=== PATIENT | male | born 1955 | race Caucasian/White ===

== ENCOUNTER 2016-05-31 16:00 | Inpatient (IN) | payer MEDICARE ==
[~2016-05-31] VITALS: Ht 167.6 cm; Wt 65.1 kg
[~2016-05-31 16:00] MED LIST: ASPI-999 PO; BUDE10.2 IH; CLOP75TA69 PO; DIAZ10TA3 PO; DULO60CA6 PO; GABA300T PO; HYDR-3720 PO; LISI-556 PO; LORA10CA PO; LOSA50TA36 PO; MEPE50TA PO; NABU750T PO; NITR0.4T SL; PROP40TA5 PO; PRV20T PO; RANI300T4 PO; RT-ALBUINH IH
--- OUTSIDE RECORDS SUMMARY | 2016-05-31 16:05 | XMS REPORT | Continuity of Care Document ---
Author Author [facility] Organization [facility] Address Unknown Phone Unavailable Allergies Active Description Code Type Severity Reaction Onset Reported/Identified Relationship to Patient Clinical Status Yes NKANo Known Allergies NKA Miscellaneous Allergy Unknown N/ A 07/25/2006 Medications Problems Date Dx Coded Attending Type Code Diagnosis Diagnosed By 09/24/2009 Ot 271.3 09/24/2009 Ot 272.4 09/24/2009 Ot 276.8 09/24/2009 Ot 305.1 09/24/2009 Ot 311 09/24/2009 Ot 338.4 09/24/2009 Ot 401.9 09/24/2009 Ot 410.71 09/24/2009 Ot 414.01 09/24/2009 Ot 427.89 09/24/2009 Ot 530.81 09/24/2009 Ot 794.2 10/10/2014 FRANCINE BRYSON, PRECIOUS Blake Ot 782.2 02/07/2015 Ot 519.19 02/07/2015 Ot 272.4 02/07/2015 Ot 401.9 02/07/2015 Ot 411.1 02/07/2015 Ot 414.01 02/07/2015 Ot 601.9 02/07/2015 Ot 791.9 02/07/2015 Ot V58.69 02/07/2015 Ot 401.9 02/07/2015 Ot 414.00 02/07/2015 Ot 496 02/07/2015 Ot 786.50 02/07/2015 Ot 788.43 02/07/2015 Ot 788.64 02/07/2015 Ot V58.69 02/07/2015 Ot V58.83 02/07/2015 FRANCINE BRYSON, PRECIOUS Blake Ot 338.29 02/07/2015 FRANCINE BRYSON, PRECIOUS Blake Ot 348.89 02/07/2015 FRANCINE BRYSON, PRECIOUS Blake Ot 368.9 02/07/2015 RFANCINE BRYSON, PRECIOUS Blake Ot 401.9 02/07/2015 FRANCINE BRYSON, PRECIOUS Blake Ot 414.01 02/07/2015 FRANCINE BRYSON, PRECIOUS Blake Ot 496 02/07/2015 PRECIOUS ESCAMILLA MD Ot 600.00 02/07/2015 PRECIOUS ESCAMILLA MD Ot 716.90 02/07/2015 PRECIOUS ESCAMILLA MD Ot V58.69 02/07/2015 PRECIOUS ESCAMILLA MD Ot 782.2 02/08/2015 PRECIOUS ESCAMILLA MD Ot F17.210 02/08/2015 PRECIOUS ESCAMILLA MD Ot I10 02/08/2015 PRECIOUS ESCAMILLA MD Ot I21.4 Procedures Results Encounters ACCT No. Visit Date/Time Discharge Status Pt. Type Provider Facility Loc./Unit Complaint [id number] 02/07/2015 22:40:00 2014 13:48:00 DIS Inpatient PRECIOUS ESCAMILLA MD [facility] [id number] 09/16/2014 14:33:00 2014 23:59:59 CLS Outpatient PRECIOUS ESCAMILLA MD [facility] CARD [id number] 09/30/2013 10:35:00 2013 23:59:59 CLS Outpatient PRECIOUS ESCAMILLA MD [facility] RAD [id number] 05/31/2016 16:02:00 ACT Emergency VON BRYSON , PEREZ Lehman [facility] ER CP [id number] 11/30/2011 17:09:00 Document Registration [id number] 05/19/2010 11:42:00 Document Registration [id number] 11/24/2009 10:45:00 Document Registration [id number] 09/23/2009 11:25:00 Document Registration
[2016-05-31] MEDS ORDERED: ASPIRIN 81 MG CHEW (CHILDREN'S ASA) PO ONE (16:15)
[2016-05-31 16:28] LABS: BASOPHILS % (AUTO) 0 % (0-10); EOSINOPHILS # (AUTO) 0.2 10^3/uL (0.0-0.3); EOSINOPHILS % (AUTO) 2 % (0-10); LYMPHOCYTES % (AUTO) 22 % (12-44); MEAN CORPUSCULAR HEMOGLOBIN 32 PG (25-34); MEAN CORPUSCULAR HGB CONC 36 G/DL (32-36); MEAN CORPUSCULAR VOLUME 89 FL (80-99); MEAN PLATELET VOLUME 11.1 FL (7.4-10.4); MONOCYTES # (AUTO) 0.5 X 10^3 (0.0-1.0); MONOCYTES % (AUTO) 6 % (0-12); NEUTROPHILS # (AUTO) 6.3 X 10^3 (1.8-7.8); NEUTROPHILS % (AUTO) 70 % (42-75); PLATELET COUNT 260 10^3/uL (130-400); RED BLOOD COUNT 4.79 10^6/uL (4.35-5.85); RED CELL DISTRIBUTION WIDTH 15.2 % (10.0-14.5)
[2016-05-31] MEDS ORDERED: NITROGLYCERIN 2% OINT 1 GM UNIT DOSE PACKET TOP ONE (16:45)
--- NOTE | 2016-05-31 16:53 | Diagnostic Imaging Report ---
EXAMINATION: Portable upright radiograph of the chest. INDICATION: Chest pain. FINDINGS: The lungs are clear. There is interstitial thickening suggestive of vascular congestion and mild interstitial edema. There is no alveolar edema or significant consolidation. The heart size is moderately enlarged. No effusion or pneumothorax. The mediastinum and reyna appear unremarkable. IMPRESSION: Cardiomegaly with interstitial pulmonary edema. Dictated by: Dictated on workstation # [id number]
[2016-05-31 17:12] LABS: INR 1.1 (0.8-1.4); PROTHROMBIN TIME PATIENT 13.8 SEC (12.2-14.7)
[2016-05-31 17:17] LABS: ALANINE AMINOTRANSFERASE 8 U/L (0-55); ALBUMIN 3.8 G/DL (3.2-4.5); ANION GAP 11 MMOL/L (5-14); ASPARTATE AMINO TRANSFERASE 14 U/L (5-34); BILIRUBIN,TOTAL 0.7 MG/DL (0.1-1.0); BLOOD UREA NITROGEN 9 MG/DL (7-18); BUN/CREATININE RATIO 11; CALCIUM 8.8 MG/DL (8.5-10.1); CARBON DIOXIDE 22 MMOL/L (21-32); CHLORIDE 109 MMOL/L (98-107); CREATININE SERUM 0.85 MG/DL (0.60-1.30); GFR ESTIMATED > 60; GLUCOSE 111 MG/DL (70-105); MAGNESIUM 2.1 MG/DL (1.8-2.4); POTASSIUM 3.8 MMOL/L (3.6-5.0); SODIUM 142 MMOL/L (135-145)
[2016-05-31 17:23] LABS: MYOGLOBIN SERUM 52.6 NG/ML (10.0-92.0)
[2016-05-31] MEDS ORDERED: NS 100 ML (IVPB) BAG IV ONE (17:30)
[2016-05-31] MEDS ORDERED: IOHEXOL 350 MG/ML 150 ML (OMNIPAQUE 350) VIAL IV ONE (17:30)
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
[2016-05-31] MEDS ORDERED: NITROGLYCERIN DRIP 25 MG/D5W 250 ML IV SCH (18:15)
--- NOTE | 2016-05-31 18:16 | Diagnostic Imaging Report ---
INDICATION: Chest pain, dyspnea, abdominal tenderness. TECHNIQUE: Contiguous axial images were obtained through the chest, abdomen, and pelvis during the intravenous administration of contrast. MIP reconstructions were created and evaluated. COMPARISON: CT of the chest 09/23/2009. DISCUSSION: Chest: No pulmonary embolus is identified. Normal heart size. The thoracic aorta is normal in caliber and configuration. The pulmonary arteries are normal in caliber. Mild emphysema is noted. Subsegmental atelectasis is noted dependently. No focal consolidation. No pleural or pericardial fluid. No mediastinal, hilar, or axillary adenopathy. No acute osseous abnormality identified. Abdomen/pelvis: Cholelithiasis is present. No secondary inflammatory changes are identified otherwise. Fatty infiltration of the liver is noted. The pancreas, stomach, spleen, adrenal glands, kidneys, urinary bladder, and prostate are unremarkable. The large and small bowel loops, including the appendix, appear normal. There is no ascites or pathologically enlarged lymph nodes identified. Degenerative changes are present within the lumbar spine. No acute osseous abnormality identified. The abdominal aorta is normal in caliber. IMPRESSION: 1. No pulmonary embolus or other acute abnormality identified within the chest. 2. Mild emphysema. 3. Fatty infiltration of the liver. 4. Cholelithiasis. Dictated by: Dictated on workstation # [id number]
[2016-05-31 18:30] LABS: ABG BASE EXCESS -1.3 MMOL/L (-2.5-2.5); ABG HCO3 23 MMOL/L (23-27); ABG OXYGEN SATURATION 93 % (94-100); ABG PCO2 40 MMHG (35-45); ABG PH 7.38 (7.37-7.43); ABG PO2 56 MMHG (79-93); ABG TCO2 24.7 MMOL/L (21.0-31.0); ALLENS TEST YES-POS; PATIENT TEMP 96.1
[2016-05-31] MEDS ORDERED: fentaNYL INJECTION 100 MCG/2 ML AMP IVP ONE (18:30)
[2016-05-31] MEDS ORDERED: ENOXAPARIN 80 MG/0.8 ML (LOVENOX) SYR SC ONE (19:30)
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
[2016-05-31 20:20] VITALS: BP 116/76
[2016-05-31] MEDS ORDERED: morphine INJ 4 MG/ML 1 ML (VIAL/SYRINGE) ONE (21:17)
[2016-05-31] MEDS: morphine INJ 4 MG/ML 1 ML (VIAL/SYRINGE) IVP PRN (21:28)
[2016-05-31 21:30] VITALS: BP 128/74
[2016-05-31] MEDS ORDERED: NITROGLYCERIN SUBLINGUAL 0.4 MG TAB (NITROSTAT) SL PRN (23:00)
[2016-05-31] MEDS ORDERED: morphine INJ 4 MG/ML 1 ML (VIAL/SYRINGE) IV PRN (23:00)
[2016-06-01] VITALS (24 sets, daily range): BP systolic 82–192; BP diastolic 49–108
[2016-06-01] MEDS: NS IV 1000 ML 1,000 ML IV SCH ×3 (01:14→17:00)
[2016-06-01] MEDS: morphine INJ 4 MG/ML 1 ML (VIAL/SYRINGE) IVP PRN ×5 (01:18→13:46)
[2016-06-01 04:31] LABS: BASOPHILS % (AUTO) 0 % (0-10); EOSINOPHILS # (AUTO) 0.1 10^3/uL (0.0-0.3); EOSINOPHILS % (AUTO) 1 % (0-10); LYMPHOCYTES # (AUTO) 2.3 X 10^3 (1.0-4.0); LYMPHOCYTES % (AUTO) 25 % (12-44); MEAN CORPUSCULAR HEMOGLOBIN 31 PG (25-34); MEAN CORPUSCULAR HGB CONC 35 G/DL (32-36); MEAN CORPUSCULAR VOLUME 89 FL (80-99); MEAN PLATELET VOLUME 9.9 FL (7.4-10.4); MONOCYTES # (AUTO) 0.5 X 10^3 (0.0-1.0); MONOCYTES % (AUTO) 5 % (0-12); NEUTROPHILS # (AUTO) 6.5 X 10^3 (1.8-7.8); NEUTROPHILS % (AUTO) 69 % (42-75); PLATELET COUNT 204 10^3/uL (130-400); RED BLOOD COUNT 4.38 10^6/uL (4.35-5.85); RED CELL DISTRIBUTION WIDTH 13.4 % (10.0-14.5); WHITE BLOOD COUNT 9.4 10^3/uL (4.3-11.0)
[2016-06-01 04:55] LABS: ALANINE AMINOTRANSFERASE 6 U/L (0-55); ALBUMIN 3.1 G/DL (3.2-4.5); ANION GAP 11 MMOL/L (5-14); ASPARTATE AMINO TRANSFERASE 15 U/L (5-34); BILIRUBIN,TOTAL 0.5 MG/DL (0.1-1.0); BLOOD UREA NITROGEN 8 MG/DL (7-18); BUN/CREATININE RATIO 11; CALCIUM 8.1 MG/DL (8.5-10.1); CARBON DIOXIDE 23 MMOL/L (21-32); CHLORIDE 108 MMOL/L (98-107); CREATININE SERUM 0.75 MG/DL (0.60-1.30); GFR ESTIMATED > 60; GLUCOSE 91 MG/DL (70-105); MAGNESIUM 1.7 MG/DL (1.8-2.4); PHOSPHORUS 3.5 MG/DL (2.3-4.7); POTASSIUM 3.3 MMOL/L (3.6-5.0); SODIUM 142 MMOL/L (135-145); TOTAL PROTEIN 5.6 G/DL (6.4-8.2)
[2016-06-01 05:29] LABS: CHOLESTEROL 142 MG/DL (< 200); DIRECT LDL 94 MG/DL (1-129); TRIGLYCERIDES 162 MG/DL (<150); VLDL CHOLESTEROL 32 MG/DL (5-40)
[2016-06-01] MEDS: KCL 20 MEQ TAB (K-DUR) PO SCH (06:00)
[2016-06-01] MEDS: MAGNESIUM 1 GM/100 ML IVPB 100 ML IV SCH ×3 (06:00→12:08)
[2016-06-01] MEDS: POTASSIUM CL 10MEQ/50ML IVPB 50 ML IV SCH ×5 (06:00→10:54)
[2016-06-01] MEDS: PANTOPRAZOLE 40 MG (PROTONIX) TAB PO SCH (06:28)
--- NOTE | 2016-06-01 08:23 | Diagnostic Imaging Report ---
INDICATION: Dyspnea Frontal chest obtained at 537 hours a.m., and compared with yesterday. There is cardiomegaly. There is mild central vascular prominence. There is no acute consolidation or pneumothorax or pleural fluid. IMPRESSION: Cardiomegaly. Mild central vascular prominence. No acute consolidation or pleural fluid. Dictated by: Dictated on workstation # [id number]
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
[2016-06-01] MEDS ORDERED: CATHETER FLUSH 10 ML SYR IV PRN (08:45)
[2016-06-01] MEDS: CLOPIDOGREL 75 MG (PLAVIX) TABLET PO SCH (08:54)
[2016-06-01] MEDS: ENOXAPARIN 80 MG/0.8 ML (LOVENOX) SYR SC SCH ×2 (08:54→20:50)
[2016-06-01] MEDS ORDERED: ASPIRIN E.C. 325 MG (ECOTRIN) TABLET PO SCH (09:00)
[2016-06-01] MEDS: NITROGLYCERIN DRIP 25 MG/250 ML D5W (PRE-MIX) IV SCH ×2 (10:49→23:00)
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
[2016-06-01] MEDS ORDERED: PROP40TA5 PO (11:58)
[2016-06-01] MEDS ORDERED: MORP15TA PO (11:58)
[2016-06-01] MEDS ORDERED: DULO60CA58 PO (11:58)
[2016-06-01] MEDS ORDERED: NABU750T PO (11:58)
[2016-06-01] MEDS ORDERED: CLOP75TA28 PO (11:58)
[2016-06-01] MEDS ORDERED: DIAZ10TA3 PO (11:58)
[2016-06-01] MEDS ORDERED: GABA-488 PO (11:58)
[2016-06-01] MEDS ORDERED: PRAV20TA3 PO (11:58)
[2016-06-01] MEDS ORDERED: HYDR-3820 PO (11:58)
[2016-06-01] MEDS ORDERED: RANI300T4 PO (11:58)
--- NOTE | 2016-06-01 12:54 | Discharge Inst-Cardiology ---
Discharge Inst-Cardiac Discharge Medications New, Converted or Re-Newed RX: Other (no new Rx.) Patient Instructions Patient Instructions: Continue current medication regimen for his chest pain, mild coronary artery disease, and systolic CHF Return to [facility] For: new concerns. Activity & Diet Discharge Diet: Cardiac Diet Drink 6-8 Glasses/Fluids/Day: Yes Activity as Tolerated: Yes Orders-Post D/C & Referrals Follow up with Dr. Hearn in 1-2 weeks- JULIO CESAR SANDOVAL MD Jun 01, 2016 12:54
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
[2016-06-01] MEDS ORDERED: ONDANSETRON 4 MG/2 ML (SDV) Z0FRAN ONE (14:59)
[2016-06-01] MEDS ORDERED: ONDANSETRON 4 MG/2 ML (SDV) Z0FRAN IVP ONE (16:00)
[2016-06-01] MEDS ORDERED: MIDAZOLAM 5 MG/5 ML (VERSED) VIAL ONE (16:00)
[2016-06-01] MEDS ORDERED: LIDOCAINE 1% INJ 20 ML (XYLOCAINE) VIAL ONE (16:00)
[2016-06-01] MEDS ORDERED: fentaNYL INJECTION 100 MCG/2 ML AMP ONE (16:00)
[2016-06-01] MEDS ORDERED: NS IV 1000 ML 1,000 ML ONE (16:00)
[2016-06-01] MEDS ORDERED: HEParin (CATH LAB) 2,000 ML IV ONE (16:01)
[2016-06-01] MEDS ORDERED: NITROGLYCERIN DRIP 25 MG/D5W 0 ML IV ONE (16:05)
[2016-06-01] MEDS ORDERED: HEParin 1000 UNIT/ML (10ML VIAL) FOR BOLUS ONE (16:05)
--- NOTE | 2016-06-01 16:09 | Cardiac Procedure Note-CS/ASA ---
Pre-Procedure Note Pre-Op Procedure Note H&P Reviewed The H&P was reviewed, patient examined and no changes noted. Date H&P Reviewed: Jun 01, 2016 Time H&P Reviewed: 16:08 Conscious Sedation Pre-Proced Time Reviewed: 16:08 ASA Class: 3 Airway Mallampati Classification: ([place] appropriate class) I. II. III, IV Lungs Heart ASA score ASA 1: a normal healthy patient ASA 2: a patient with a mild systemic disease (mid diabetes, controlled hypertension, obesity x ASA 3: a patient with a severe systemic disease that limits activity (angina , COPD, prior Myocardial infarction) ASA 4: a patient with an incapacitating disease that is a constant threat to life (CHF, renal failure) ASA 5: a moribund patient not expected to survive 24 hrs. (ruptured aneurysm) ASA 6: a declared brain patient whose organs are being harvested. For emergent operations, add the letter E after the classification Grade 3 Sedation Plan: Analgesia, Amnesia, Plan communicated to team members, Discussed options with patient/fam, Discussed risks with patient/fam Note The patient is an appropriate candidate to undergo the planned procedure, sedation, and anesthesia. The patient immediately re-assessed prior to indication. MAAME TAPIA MD Jun 01, 2016 16:08
[2016-06-01] MEDS ORDERED: meTOprolol 5 MG/5 ML (LOPRESSOR) VIAL ONE (16:33)
[2016-06-01] MEDS ORDERED: ENALAPRILAT 2.5 MG/2 ML (VASOTEC) VIAL IV ONE (16:33)
[2016-06-01] MEDS ORDERED: ADENOSINE 3 MG/1 ML (ADENOSCAN) 30ML VIAL IV ONE (16:39)
[2016-06-01] MEDS ORDERED: RT-ALBUTEROL/IPRATROPIUM 3 ML (DUONEB) VIAL ONE (16:56)
[2016-06-01] MEDS ORDERED: PATIENT MAY USE OWN MEDS, ALL PO SCH (17:00)
[2016-06-01] MEDS ORDERED: lisINopril 5 MG (PRINIVIL) TABLET PO NR (17:00)
[2016-06-01] MEDS: RT-ALBUTEROL/IPRATROPIUM 3 ML (DUONEB) VIAL INH SCH (19:24)
[2016-06-01] MEDS ORDERED: FUROSEMIDE 40 MG/4 ML INJ (LASIX) IVP NR (21:00)
[2016-06-02] VITALS (9 sets, daily range): BP systolic 106–153; BP diastolic 60–88
[2016-06-02] MEDS: NS IV 1000 ML 1,000 ML IV SCH (02:50)
[2016-06-02 04:25] LABS: BASOPHILS % (AUTO) 0 % (0-10); EOSINOPHILS # (AUTO) 0.1 10^3/uL (0.0-0.3); EOSINOPHILS % (AUTO) 2 % (0-10); LYMPHOCYTES # (AUTO) 2.3 X 10^3 (1.0-4.0); LYMPHOCYTES % (AUTO) 28 % (12-44); MEAN CORPUSCULAR HEMOGLOBIN 31 PG (25-34); MEAN CORPUSCULAR HGB CONC 35 G/DL (32-36); MEAN CORPUSCULAR VOLUME 90 FL (80-99); MONOCYTES # (AUTO) 0.5 X 10^3 (0.0-1.0); MONOCYTES % (AUTO) 6 % (0-12); NEUTROPHILS # (AUTO) 5.3 X 10^3 (1.8-7.8); NEUTROPHILS % (AUTO) 65 % (42-75); PLATELET COUNT 178 10^3/uL (130-400); RED CELL DISTRIBUTION WIDTH 13.7 % (10.0-14.5); WHITE BLOOD COUNT 8.2 10^3/uL (4.3-11.0)
[2016-06-02 04:47] LABS: ANION GAP 10 MMOL/L (5-14); BLOOD UREA NITROGEN 5 MG/DL (7-18); BUN/CREATININE RATIO 6; CARBON DIOXIDE 24 MMOL/L (21-32); CHLORIDE 108 MMOL/L (98-107); CREATININE SERUM 0.79 MG/DL (0.60-1.30); GFR ESTIMATED > 60; GLUCOSE 97 MG/DL (70-105); MAGNESIUM 2.1 MG/DL (1.8-2.4); PHOSPHORUS 2.9 MG/DL (2.3-4.7); POTASSIUM 3.4 MMOL/L (3.6-5.0); SODIUM 142 MMOL/L (135-145)
[2016-06-02 05:01] LABS: TROPONIN I 1.69 NG/ML (<0.30)
[2016-06-02] MEDS: MAGNESIUM 1 GM/100 ML IVPB 100 ML IV SCH (05:01)
[2016-06-02] MEDS: POTASSIUM CL 10MEQ/50ML IVPB 50 ML IV SCH (05:01)
[2016-06-02] MEDS: KCL 20 MEQ TAB (K-DUR) PO SCH (05:16)
[2016-06-02] MEDS ORDERED: KCL 20 MEQ TAB (K-DUR) PO ONE (06:00)
[2016-06-02] MEDS: PANTOPRAZOLE 40 MG (PROTONIX) TAB PO SCH (06:00)
[2016-06-02] MEDS: RT-ALBUTEROL/IPRATROPIUM 3 ML (DUONEB) VIAL INH SCH (07:21)
--- NOTE | 2016-06-02 07:37 | Diagnostic Imaging Report ---
Clinical indication: Patient with dyspnea. Exam: Portable chest x-ray upright view. Comparisons: Chest x-ray dated 05/30/2016. Findings: There is interval development of small patchy airspace opacities seen within the bilateral perihilar regions which may represent atelectasis versus infiltrate. Otherwise, lungs are clear. There is no pleural effusion or pneumothorax. Pulmonary vasculature is mildly congested centrally. Cardiac silhouettes within normal limits. The remainder of this exam shows no significant interval change compared to the prior study of comparison. Impression: 1.: Interval development of mild bilateral perihilar atelectasis versus infiltrate. 2: Stable mild pulmonary vascular congestion centrally. 3: The remainder of this exam shows no significant interval change compared to the prior study of comparison. Dictated by: Dictated on workstation # [id number]
[2016-06-02] MEDS ORDERED: DIAZEPAM 5 MG (VALIUM) TABLET PO PRN (07:45)
--- NOTE | 2016-06-02 07:48 | Cardiology Progress Note ---
Subjective Subjective/Events-last exam patient is laying down, no complaint, no chest pain today Review of Systems General: No Chills, No Night Sweats, No Fatigue, No Malaise, No Appetite, No Other HEENT: No Head Aches, No Visual Changes, No Eye Pain, No Ear Pain, No Dysphasia , No Sinus Congestion, No Post Nasal Drip, No Sore Throat, No Other Pulmonary: No Dyspnea, No Cough, No Pleuritic Chest Pain, No Other Cardiovascular: No: Chest Pain, Edema, Lt Headedness, Orthopnea, Other, Palpitations, Paroxysmal Noc. Dyspnea Objective-Cardiology Exam Last Set of Vital Signs Vital Signs 06/01/16 06/02/16 06/02/16 15:45 06:00 07:22 Pulse 61 Resp 16 B/P 153/86 Pulse Ox 98 O2 Delivery Nasal Cannula O2 Flow Rate 2.00 Capillary Refill : Less Than 3 Seconds I&O Intake and Output 06/02/16 00:00 Intake Total 1540 ml Output Total 1850 ml Balance -310 ml Intake Oral 1290 ml IV Total 250 ml Output Urine Total 1850 ml General: Alert, Oriented X3, Cooperative HEENT: Atraumatic Neck: Supple, No JVD, No Thyromegaly Lungs: Clear to Auscultation Heart: Regular Rate Abdomen: Normal Bowel Sounds, Soft Extremities: No Clubbing, No Cyanosis, No Edema, Normal Pulses, No Tenderness/ Swelling Skin: No Rashes, No Breakdown, No Significant Lesion Neuro: Normal Gait, Normal Speech, Strength at 5/5 X4 Ext, Normal Tone, Sensation Intact Psych/Mental Status: Mental Status NL, Mood NL Results Lab Laboratory Tests 06/02/16 04:10 A/P-Cardiology Admission Diagnosis Chest pain Non-ST elevation myocardial infarctions Coronary artery disease Hypertension Tobaccoism Assessment/Plan Chest pain, no Myocardial infarction, cardiac cath showed mild CAD, probably elevated trop is secondary to CHF Congestive heart failure, acute left ventricular systolic dysfunction, nonischemic in nature, unknown etiology, started beta blockers and Suhas inhibitors Coronary artery disease mild per cardiac catheterization, 50% stenosis in mid RCA Hypertension, evaluate tolerance to medication. Hyperlipidemia. restart home meds and monitor lipids Joint pain, hip pain and back pain. Chronic. 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 Positive urine drug screen for marijuana. Tobaccoism, educated on smoking cessation. I will evaluate for tick titers, okay for discharge from cardiology standpoint Clinical Quality Measures AMI/AHF: ASA po Prior to arrival: Yes (PER EMS) DVT/VTE Risk/Contraindication: Risk Factor Score Per Nursin RFS Level Per Nursing on Admit: 2=Moderate MAAME TAPIA MD Jun 02, 2016 07:48
[2016-06-02] MEDS ORDERED: ASPI-983 PO (08:21)
[2016-06-02] MEDS ORDERED: METO-270 PO (08:21)
[2016-06-02] MEDS: CLOPIDOGREL 75 MG (PLAVIX) TABLET PO SCH (08:28)
[2016-06-02] MEDS: ENOXAPARIN 80 MG/0.8 ML (LOVENOX) SYR SC SCH (08:30)
[2016-06-02] MEDS ORDERED: ASPIRIN E.C. 81 MG (ECOTRIN) TAB PO SCH ×2 (09:00)
[2016-06-02] MEDS ORDERED: lisINopril 5 MG (PRINIVIL) TABLET PO SCH (09:00)
--- NOTE | 2016-06-02 11:29 | CARDIAC CATHETERIZATION ---
PROCEDURE PHYSICIAN: MAAME TAPIA DATE OF PROCEDURE: 06/01/2016 REFERRING PHYSICIAN: Dr. Castillo BRIEF HISTORY: Mr. Brown is a 60-year-old gentleman admitted with acute chest pain. He had elevated troponin. No acute EKG changes. We offered the patient cardiac catheterization on admission and he refused, he asked to wait until the next day. This morning I offered him a cardiac catheterization and he elected not to have it done. I offered him medical therapy and patient agreed to stay then he requested to be discharged. Upon processing his discharge he started having chest pain again and he agreed having cardiac catheterization done. PROCEDURE NOTE: After explaining the procedure to the patient, all pros and cons were explained. All questions were answered. The patient signed a consent, then he was placed on the cardiac catheterization laboratory. The right groin was prepped in a sterile fashion. Local anesthesia applied to right groin. 6-[place] sheath was placed in the right femoral artery. Combination of right and left Joana catheters were used to access the right and left coronary system. Multiple views were obtained. Pigtail catheter was advanced to the left ventricular cavity. Left ventriculogram was done. Pullback LV to aorta was done. The aortic arch angiogram was done. The patient had a borderline lesion in the right coronary artery. I decided to do FFR. He was given 5000 units of heparin. FR guide was advanced to the right coronary artery Radi wire was initially equalized and then it was advanced and parked in the distal right coronary artery. Baseline FFR was 0.97. Adenosine drip was given. After 2 minutes he was having shortness of breath; lowest FFR was 0.93. The lesion deemed nonobstructive. Angiogram was done after removal of the wire, which did not show any significant residual complication. At the end of the procedure, sheath was removed. Mynx device deployed. FINDINGS: HEMODYNAMICS: LV pressure 141/20, end-diastolic pressure of 20. Aortic pressure 154/76, mean of 105. ANATOMY: 1. Left main coronary artery is small with nonobstructive disease. 2. Left anterior descending artery is tapered down into a smaller artery with no obstructive disease. Mild disease distally. 3. Left circumflex artery is a small artery with no obstructive disease. 4. Right coronary artery is moderate in size. Has 60% stenosis at its midportion. FFR across the lesion was 0.97 at baseline and 0.93 after adenosine injection, nonobstructive lesions. 5. Left ventriculogram was done in the right anterior oblique position. The left ventricle is dilated with diffuse left ventricular hypokinesia. Estimated ejection fraction 35%. 6. Aortic arch angiogram: Aortic arch evaluation showed hypertensive changes in the aortic arch. No dissection was noted. Origin of the subclavian artery, innominate artery and left carotid artery appeared normal. CONCLUSION: 1. 50 to 60% stenosis in the mid right coronary artery, nonobstructive disease confirmed by FFR. 2. Small left coronary system with nonobstructive disease. 3. Dilated left ventricle with diffuse left ventricular hypokinesia. Estimated ejection fraction 35% with elevated left ventricular end diastolic pressure. 4. Hypertensive changes in the aortic arch, no dissection was noted. DISCUSSION AND RECOMMENDATION: Mr. Brown has severe cardiomyopathy, nonischemic in nature probably secondary to hypoxemia. We will give him Lasix. Start him on beta blockers and EMY inhibitors and monitor. Start him on MAT protocol. Monitor his ejection fraction. Continue medical therapy. Consider discontinuation of Plavix at this point, just keep him on aspirin. Job ID: [id number] Dictated Date: 06/01/2016 16:58:07 Teacher Tutor Date: 06/02/2016 11:13:56 / trish
--- NOTE | 2016-06-03 13:20 | Physician Query ---
PQ-Further Specificity Admission/Discharge Admission Date: May 31, 2016 at 19:25 Discharge Date: Jun 02, 2016 at 10:50 The medical record reflects the following clinical scenario: History/Risk Factors: Chest Pain/NSTEMI 2009 Clinical Findings: 50-60 % stenosis in the mid right coronary artery, nonobstructive. Severe cardiomyopathy, nonischemic in nature probably secondary to hypoxemia. Acute systolic congestive heart failure with estimated ejection fraction of 35%. Treatment: Left heart cath. Lasix, beta blockers and EMY inhibitors and aspirin. Question: Can you clarify the etiology of the patient's admitting chest pain ( after study) per the clinical indicators above? Please document below. 1. Coronary artery disease. 2. Acute systolic congestive heart failure. 3. Non-ischemic cardiomyopathy. 4. Other, with explanation of the clinical findings. 5. Clinically undetermined, no explanation for the clinical findings. PHYSICIAN RESPONSE Can you specify per above: 1 Explanation/Clinical Findings patient has severe coronary artery disease and had 2 stents to RCA and planning for 2 other stents to LAD has Unstable angina Please remember a lack of response to the above will prompt a phone page by [facility]/ coding staff. In responding to this query, please exercise your independent professional judgment. The purpose of this communication is to more accurately reflect the complexity of your patients condition. The fact that a question is asked does not imply that any particular answer is desired or expected. Thank you for your timely response to this clarification. Requestors name: Carmen Leung [facility] Phone # ext [phone] or [phone] THIS PHYSICIAN QUERY FORM IS A PERMANENT PART OF THE MEDICAL RECORD CARMEN LEUNG Jun 03, 2016 13:20 MAAME TAPIA MD Jun 03, 2016 16:59
[2016-06-03 13:32] LABS: EHRLICHIA CHAFFEENSIS G ABY <1:16 (<1:16)
[2016-06-03 13:51] LABS: IGG ROCKY MOUNTAIN SPOTTED FEV <1:16 (<1:16); IGM ROCKY MOUNTAIN SPOTTED FEV <1:10 (<1:10)
[2016-06-03 15:12] LABS: TULAREMIA ANTIBODY <1:20
== END 2016-06-02 10:50 | disposition home or self-care (01) | DRG 286 ==
LOC: EDUNIT# 16:00 → ER 16:02 → ICU 19:25
PROVIDERS: ADMIT Family Medicine; ATTEND Family Medicine
PROC: 4A023N7 Measurement of Cardiac Sampling and Pressure, Left Heart, Percutaneous Approach (ICD-10-PCS; principal; 2016-06-01)
PROC: B2111ZZ Fluoroscopy of Multiple Coronary Arteries using Low Osmolar Contrast (ICD-10-PCS; 2016-06-01)
PROC: B2151ZZ Fluoroscopy of Left Heart using Low Osmolar Contrast (ICD-10-PCS; 2016-06-01)
PROC: B3101ZZ Fluoroscopy of Thoracic Aorta using Low Osmolar Contrast (ICD-10-PCS; 2016-06-01)
DX: I25.110 Atherosclerotic heart disease of native coronary artery with unstable angina pectoris (principal); I11.0 Hypertensive heart disease with heart failure; I50.21 Acute systolic (congestive) heart failure; I16.1 Hypertensive emergency; I42.9 Cardiomyopathy, unspecified; E78.00 Pure hypercholesterolemia, unspecified; I25.2 Old myocardial infarction; R00.1 Bradycardia, unspecified; F17.210 Nicotine dependence, cigarettes, uncomplicated; J43.9 Emphysema, unspecified; R09.02 Hypoxemia; I16.0 Hypertensive urgency; M54.9 Dorsalgia, unspecified; M19.91 Primary osteoarthritis, unspecified site; F12.10 Cannabis abuse, uncomplicated; E83.42 Hypomagnesemia; E87.6 Hypokalemia; K80.20 Calculus of gallbladder without cholecystitis without obstruction; K76.0 Fatty (change of) liver, not elsewhere classified; K21.9 Gastro-esophageal reflux disease without esophagitis; N40.0 Benign prostatic hyperplasia without lower urinary tract symptoms; F41.9 Anxiety disorder, unspecified; F32.9 Major depressive disorder, single episode, unspecified; Z87.820 Personal history of traumatic brain injury; Z90.01 Acquired absence of eye; Z98.1 Arthrodesis status
CPT/HCPCS: 36221; 36415; 71010; 71275; 74177; 80048; 80053; 80061; 80306; 80320; 82805; 83690; 83735; 83874; 83880; 84100; 84484; 85025; 85347; 85379; 85610; 85730; 86618; 86666; 86668; 86757; 87081; 93005; 93041; 93458; 93571; 94640; 96365; 96372; 96375

== ENCOUNTER 2017-02-08 01:44 | Emergency (ER) | payer MEDICARE ==
[~2017-02-08] VITALS: Ht 167.6 cm; Wt 65.1 kg
[~2017-02-08 01:44] MED LIST changes: +ASPI-983 PO; +CLOP75TA28 PO; +DULO60CA58 PO; +GABA-488 PO; +HYDR-3820 PO; +METO-387 PO; +MORP15TA PO; +PRAV20TA3 PO
[2017-02-08] MEDS ORDERED: NS IV 1000 ML 1,000 ML IV ONE (02:04)
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
[2017-02-08 02:14] LABS: BASOPHILS % (AUTO) 0 % (0-10); EOSINOPHILS # (AUTO) 0.3 10^3/uL (0.0-0.3); EOSINOPHILS % (AUTO) 3 % (0-10); LYMPHOCYTES # (AUTO) 3.1 X 10^3 (1.0-4.0); LYMPHOCYTES % (AUTO) 28 % (12-44); MEAN CORPUSCULAR HEMOGLOBIN 32 PG (25-34); MEAN CORPUSCULAR HGB CONC 36 G/DL (32-36); MEAN CORPUSCULAR VOLUME 88 FL (80-99); MEAN PLATELET VOLUME 9.3 FL (7.4-10.4); MONOCYTES # (AUTO) 0.8 X 10^3 (0.0-1.0); MONOCYTES % (AUTO) 7 % (0-12); NEUTROPHILS # (AUTO) 6.7 X 10^3 (1.8-7.8); NEUTROPHILS % (AUTO) 62 % (42-75); PLATELET COUNT 219 10^3/uL (130-400); RED BLOOD COUNT 4.97 10^6/uL (4.35-5.85); RED CELL DISTRIBUTION WIDTH 12.7 % (10.0-14.5); WHITE BLOOD COUNT 10.8 10^3/uL (4.3-11.0)
[2017-02-08] MEDS ORDERED: ONDANSETRON 4 MG/2 ML (SDV) Z0FRAN IVP ONE (02:15)
[2017-02-08] MEDS ORDERED: PROP10TA8 (02:16)
[2017-02-08] MEDS ORDERED: ONDA4TAB11 PO (02:22)
[2017-02-08 02:36] LABS: ALANINE AMINOTRANSFERASE 7 U/L (0-55); ALBUMIN 4.1 GM/DL (3.2-4.5); ANION GAP 13 MMOL/L (5-14); ASPARTATE AMINO TRANSFERASE 12 U/L (5-34); BILIRUBIN,TOTAL 1.1 MG/DL (0.1-1.0); BLOOD UREA NITROGEN 12 MG/DL (7-18); BUN/CREATININE RATIO 14; CALCIUM 9.1 MG/DL (8.5-10.1); CARBON DIOXIDE 18 MMOL/L (21-32); CHLORIDE 110 MMOL/L (98-107); CREATININE SERUM 0.84 MG/DL (0.60-1.30); GFR ESTIMATED > 60; GLUCOSE 107 MG/DL (70-105); MAGNESIUM 1.8 MG/DL (1.8-2.4); POTASSIUM 2.7 MMOL/L (3.6-5.0); SODIUM 141 MMOL/L (135-145); TOTAL PROTEIN 7.3 GM/DL (6.4-8.2)
[2017-02-08] MEDS ORDERED: NS W/KCL 20 MEQ/L 1,000 ML IV ONE ×2 (02:42→03:00)
[2017-02-08] MEDS ORDERED: KCL 20 MEQ TAB (K-DUR) PO ONE (02:45)
[2017-02-08] MEDS ORDERED: POTASSIUM CL 10MEQ/50ML IVPB 50 ML IV ONE (02:45)
[2017-02-08] MEDS ORDERED: POTA-51 PO (02:48)
[2017-02-08 03:43] LABS: BILIRUBIN,URINE NEGATIVE (NEGATIVE); KETONES,URINE NEGATIVE (NEGATIVE); LEUKOCYTE ESTERASE ,URINE NEGATIVE (NEGATIVE); NITRITE,URINE NEGATIVE (NEGATIVE); PH,URINE 7 (5-9); PROTEIN,URINE NEGATIVE (NEGATIVE); UROBILINOGEN,URINE NORMAL (NORMAL)
[2017-02-08 04:25] VITALS: BP 176/76
== END 2017-02-08 04:18 | disposition home or self-care (01) ==
LOC: EDUNIT# 01:44 → ER 01:51
DX: A08.4 Viral intestinal infection, unspecified (principal); G47.00 Insomnia, unspecified; E86.0 Dehydration; L57.0 Actinic keratosis; E87.6 Hypokalemia; I25.10 Atherosclerotic heart disease of native coronary artery without angina pectoris; I42.9 Cardiomyopathy, unspecified; I25.2 Old myocardial infarction; J44.9 Chronic obstructive pulmonary disease, unspecified; E78.00 Pure hypercholesterolemia, unspecified; I10 Essential (primary) hypertension; N40.0 Benign prostatic hyperplasia without lower urinary tract symptoms; M19.90 Unspecified osteoarthritis, unspecified site; K21.9 Gastro-esophageal reflux disease without esophagitis; F41.9 Anxiety disorder, unspecified; F32.9 Major depressive disorder, single episode, unspecified; F17.210 Nicotine dependence, cigarettes, uncomplicated; Z79.82 Long term (current) use of aspirin; Z87.820 Personal history of traumatic brain injury; Z98.1 Arthrodesis status; Z87.19 Personal history of other diseases of the digestive system
CPT/HCPCS: 36415; 80053; 80306; 81000; 83735; 85025; 93005

== ENCOUNTER 2017-07-27 13:31 | Inpatient (IN) | payer MEDICARE ==
[2017-07-27] VITALS (14 sets, daily range): BP systolic 38–162; BP diastolic 63–101
[~2017-07-27] VITALS: Ht 172.7 cm; Wt 80.7 kg
[~2017-07-27 13:31] MED LIST changes: +LIDOCAINE 1% INJ 20 ML 20 ML VIAL ONE; +ONDA4TAB11 PO; +POTA-51 PO; +PROP10TA8; +fentaNYL INJECTION 100 MCG/2 ML AMP ONE
[2017-07-27] MEDS ORDERED: HEParin 1000 UNIT/ML (10ML VIAL) FOR BOLUS ONE ×2 (13:32→13:34)
[2017-07-27] MEDS ORDERED: NS IV 1000 ML 2,000 ML ONE (13:32)
[2017-07-27] MEDS ORDERED: MIDAZOLAM 5 MG/5 ML (VERSED) VIAL ONE (13:32)
[2017-07-27] MEDS ORDERED: CLOPIDOGREL 300 MG (PLAVIX) TABLET PO ONE ×2 (13:34→13:45)
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
--- OUTSIDE RECORDS SUMMARY | 2017-07-27 13:38 | XMS REPORT | Continuity of Care Document ---
Author Author [facility] Organization [facility] Address Unknown Phone Unavailable Allergies Active Description Code Type Severity Reaction Onset Reported/Identified Relationship to Patient Clinical Status Yes NKANo Known Allergies NKA Miscellaneous Allergy Unknown N/A 07/25/2006 Medications There is no data. Problems Date Dx Coded Attending Type Code [...] FRANCINE BRYSON, PRECIOUS Blake Ot 368.9 02/07/2015 FRANCINE BRYSON, PRECIOUS Blake Ot 401.9 02/07/2015 FRANCINE BRYSON, PRECIOUS Blake Ot 414.01 02/07/2015 PRECIOUS ESCAMILLA MD Ot 496 02/07/2015 PRECIOUS ESCAMILLA MD Ot 600.00 02/07/2015 PRECIOUS ESCAMILLA MD Ot 716.90 02/07/2015 PRECIOUS ESCAMILLA MD Ot V58.69 02/07/2015 PRECIOUS ESCAMILLA MD Ot 782.2 02/08/2015 PRECIOUS ESCAMILLA MD Ot F17.210 NICOTINE DEPENDENCE, CIGARETTES, UNCOMPL 02/08/2015 PRECIOUS ESCAMILLA MD Ot I10 ESSENTIAL (PRIMARY) HYPERTENSION 02/08/2015 PRECIOUS ESCAMILLA MD Ot I21.4 NON-ST ELEVATION (NSTEMI) MYOCARDIAL INF 05/31/2016 Ot 401.9 HYPERTENSION NOS 05/31/2016 Ot 414.00 CORON ATHEROSCLER NOS TYPE VESSEL, NATIV 05/31/2016 Ot 496 CHR AIRWAY OBSTRUCT NEC 05/31/2016 Ot 786.50 CHEST PAIN NOS 05/31/2016 Ot 788.43 NOCTURIA 05/31/2016 Ot 788.64 URINARY HESITANCY 05/31/2016 Ot V58.69 OTH MED,LT, CURRENT USE 05/31/2016 Ot V58.83 ENCOUNTER FOR THERAPEUTIC DRUG MONITORIN 05/31/2016 PRECIOUS ESCAMILLA MD Ot 338.29 OTHER CHRONIC PAIN 05/31/2016 FRANCINE BRYSON, PRECIOUS Blake Ot 348.89 OTHER CONDITIONS OF BRAIN 05/31/2016 PRECIOUS ESCAMILLA MD Ot 368.9 VISUAL DISTURBANCE NOS 05/31/2016 PRECIOUS ESCAMILLA MD Ot 401.9 HYPERTENSION NOS 05/31/2016 PRECIOUS ESCAMILLA MD Ot 414.01 CORONARY ATHEROSCLEROSIS OF [place] CORON 05/31/2016 PRECIOUS ESCAMILLA MD Ot 496 CHR AIRWAY OBSTRUCT NEC 05/31/2016 PRECIOUS ESCAMILLA MD Ot 600.00 HYPERTROPHY (BENIGN) OF PROSTATE W/O URI 05/31/2016 PRECIOUS ESCAMILLA MD Ot 716.90 ARTHROPATHY NOS-UNSPEC 05/31/2016 PRECIOUS ESCAMILLA MD Ot V58.69 OTH MED,LT,CURRENT USE 05/31/2016 PRECIOUS ESCAMILLA MD Ot 782.2 LOCAL SUPRFICIAL SWELLNG 06/02/2016 JULIO CESAR SANDOVAL MD Ot E78.00 PURE HYPERCHOLESTEROLEMIA, UNSPECIFIED 06/02/2016 JULIO CESAR SANDOVAL MD Ot E83.42 HYPOMAGNESEMIA 06/02/2016 JULIO CESAR SANDOVAL MD Ot E87.6 HYPOKALEMIA 06/02/2016 JULIO CESAR SANDOVAL MD Ot F12.10 CANNABIS ABUSE, UNCOMPLICATED 06/02/2016 JULIO CESAR SANDOVAL MD Ot F17.210 NICOTINE DEPENDENCE, CIGARETTES, UNCOMPL 06/02/2016 JULIO CESAR SANDOVAL MD, Ot F32.9 MAJOR DEPRESSIVE DISORDER, SINGLE EPISOD 06/02/2016 JULIO CESAR SANDOVAL MD, Ot F41.9 ANXIETY DISORDER, UNSPECIFIED 06/02/2016 JULIO CESAR SANDOVAL MD, Ot I11.0 HYPERTENSIVE HEART DISEASE WITH HEART FA 06/02/2016 JULIO CESAR SANDOVAL MD, Ot I16.0 HYPERTENSIVE URGENCY 06/02/2016 JULIO CESAR SANDOVAL MD, Ot I16.1 HYPERTENSIVE EMERGENCY 06/02/2016 JULIO CESAR SANDOVAL MD, Ot I25.110 ATHSCL HEART DISEASE OF [place] COR ART W 06/02/2016 JULIO CESAR SANDOVAL MD, Ot I25.2 OLD MYOCARDIAL INFARCTION 06/02/2016 JULIO CESAR SANDOVAL MD, Ot I42.9 CARDIOMYOPATHY, UNSPECIFIED 06/02/2016 JULIO CESAR SANDOVAL MD, Ot I50.21 ACUTE SYSTOLIC (CONGESTIVE) HEART FAILUR 06/02/2016 JULIO CESAR SANDOVAL MD, Ot J43.9 EMPHYSEMA, UNSPECIFIED 06/02/2016 JULIO CESAR SANDOVAL MD, Ot K21.9 GASTRO-ESOPHAGEAL REFLUX DISEASE WITHOUT 06/02/2016 JULIO CESAR SANDOVAL MD, Ot K76.0 FATTY (CHANGE OF) LIVER, NOT ELSEWHERE C 06/02/2016 JULIO CESAR SANDOVAL MD, Ot K80.20 CALCULUS OF GALLBLADDER W/O CHOLECYSTITI 06/02/2016 JULIO CESAR SANDOVAL MD Ot M19.91 PRIMARY OSTEOARTHRITIS, UNSPECIFIED SITE 06/02/2016 JULIO CESAR SANDOVAL MD, Ot M54.9 DORSALGIA, UNSPECIFIED 06/02/2016 JULIO CESAR SANDOVAL MD, Ot N40.0 BENIGN PROSTATIC HYPERPLASIA WITHOUT LOW 06/02/2016 JULIO CESAR SANDOVAL MD Ot R00.1 BRADYCARDIA, UNSPECIFIED 06/02/2016 JULIO CESAR SANDOVAL MD Ot R09.02 HYPOXEMIA 06/02/2016 JULIO CESAR SANDOVAL MD, Ot Z87.820 PERSONAL HISTORY OF TRAUMATIC BRAIN INJU 06/02/2016 JULIO CESAR SANDOVAL MD Ot Z90.01 ACQUIRED ABSENCE OF EYE 06/02/2016 JULIO CESAR SANDOVAL MD, Ot Z98.1 ARTHRODESIS STATUS 02/08/2017 Ot 401.9 HYPERTENSION NOS 02/08/2017 Ot 414.00 CORON ATHEROSCLER NOS TYPE VESSEL, NATIV 02/08/2017 Ot 496 CHR AIRWAY OBSTRUCT NEC 02/08/2017 Ot 786.50 CHEST PAIN NOS 02/08/2017 Ot 788.43 NOCTURIA 02/08/2017 Ot 788.64 URINARY HESITANCY 02/08/2017 Ot V58.69 OTH MED,LT, CURRENT USE 02/08/2017 Ot V58.83 ENCOUNTER FOR THERAPEUTIC DRUG MONITORIN 02/08/2017 PRECIOUS ESCAMILLA MD Ot 338.29 OTHER CHRONIC PAIN 02/08/2017 PRECIOUS ESCAMILLA MD Ot 348.89 OTHER CONDITIONS OF BRAIN 02/08/2017 PRECIOUS ESCAMILLA MD Ot 368.9 VISUAL DISTURBANCE NOS 02/08/2017 PRECIOUS ESCAMILLA MD Ot 401.9 HYPERTENSION NOS 02/08/2017 PRECIOUS ESCAMILLA MD Ot 414.01 CORONARY ATHEROSCLEROSIS OF [place] CORON 02/08/2017 PRECIOUS ESCAMILLA MD Ot 496 CHR AIRWAY OBSTRUCT NEC 02/08/2017 PRECIOUS ESCAMILLA MD Ot 600.00 HYPERTROPHY (BENIGN) OF PROSTATE W/O URI 02/08/2017 PRECIOUS ESCAMILLA MD Ot 716.90 ARTHROPATHY NOS-UNSPEC 02/08/2017 PRECIOUS ESCAMILLA MD Ot V58.69 OTH MED,LT,CURRENT USE 02/08/2017 PRECIOUS ESCAMILLA MD Ot 782.2 LOCAL SUPRFICIAL SWELLNG 02/08/2017 ALCIDES MALONEY MD Ot A08.4 VIRAL INTESTINAL INFECTION, UNSPECIFIED 02/08/2017 ALCIDES MALONEY MD Ot E78.00 PURE HYPERCHOLESTEROLEMIA, UNSPECIFIED 02/08/2017 ALCIDES MALONEY MD Ot E86.0 DEHYDRATION 02/08/2017 ALCIDES MALONEY MD Ot E87.6 HYPOKALEMIA 02/08/2017 ALCIEDS MALONEY MD Ot F17.210 NICOTINE DEPENDENCE, CIGARETTES, UNCOMPL 02/08/2017 ALCIDES MALONEY MD Ot F32.9 MAJOR DEPRESSIVE DISORDER, SINGLE EPISOD 02/08/2017 ALCIDES MALONEY MD Ot F41.9 ANXIETY DISORDER, UNSPECIFIED 02/08/2017 ALCIDES MALONEY MD Ot G47.00 INSOMNIA, UNSPECIFIED 02/08/2017 ALCIDES MALONEY MD Ot I10 ESSENTIAL (PRIMARY) HYPERTENSION 02/08/2017 ALCIDES MALONEY MD Ot I25.10 ATHSCL HEART DISEASE OF [place] CORONARY 02/08/2017 ALCIDES MALONEY MD Ot I25.2 OLD MYOCARDIAL INFARCTION 02/08/2017 ALCIDES MALONEY MD Ot I42.9 CARDIOMYOPATHY, UNSPECIFIED 02/08/2017 ALCIDES MALONEY MD Ot J44.9 CHRONIC OBSTRUCTIVE PULMONARY DISEASE, U 02/08/2017 ALCIDES MALONEY MD Ot K21.9 GASTRO-ESOPHAGEAL REFLUX DISEASE WITHOUT 02/08/2017 ALCIDES MALONEY MD Ot L57.0 ACTINIC KERATOSIS 02/08/2017 ALCIDES MALONEY MD Ot M19.90 UNSPECIFIED OSTEOARTHRITIS, UNSPECIFIED 02/08/2017 ALCIDES MALONEY MD Ot N40.0 BENIGN PROSTATIC HYPERPLASIA WITHOUT LOW 02/08/2017 ALCIDES MALONEY MD Ot R19.7 DIARRHEA, UNSPECIFIED 02/08/2017 ALCIDES MALONEY MD Ot Z79.82 [employer] (CURRENT) USE OF ASPIRIN 02/08/2017 ALCIDES MALONYE MD Ot Z87.19 PERSONAL HISTORY OF OTHER DISEASES OF TH 02/08/2017 ALCIDES MALONEY MD, Ot Z87.820 PERSONAL HISTORY OF TRAUMATIC BRAIN INJU 02/08/2017 ALCIDES MALONEY MD Ot Z98.1 ARTHRODESIS STATUS Procedures Code Description Performed By Performed On [id number] MEASURE OF CARDIAC SAMPL PRESSURE, L H 06/01/2016 [id number] FLUOROSCOPY OF MULT COR ART USING L OSM 06/01/2016 [id number] FLUOROSCOPY OF LEFT HEART USING LOW OSMO 06/01/2016 [id number] FLUOROSCOPY OF THORACIC AORTA USING LOW 06/01/2016 Results Test Result Range Complete blood count (CBC) with automated white blood cell (WBC) differential - 05/31/16 16:19 Blood leukocytes automated count (number/volume) 9.0 10*3/uL 4.3-11.0 Blood erythrocytes automated count (number/volume) 4.79 10*6/uL 4.35-5.85 Venous blood hemoglobin measurement (mass/volume) 15.2 g/dL 13.3-17.7 Blood hematocrit (volume fraction) 43 % 40-54 Automated erythrocyte mean corpuscular volume 89 [foz_us] 80-99 Automated erythrocyte mean corpuscular hemoglobin (mass per erythrocyte) 32 pg 25-34 Automated erythrocyte mean corpuscular hemoglobin concentration measurement ( mass/volume) 36 g/dL 32-36 Automated erythrocyte distribution width ratio 15.2 % 10.0-14.5 Automated blood platelet count (count/volume) 260 10*3/uL 130-400 Automated blood platelet mean volume measurement 11.1 [foz_us] 7.4-10.4 Automated blood neutrophils/100 leukocytes 70 % 42-75 Automated blood lymphocytes/100 leukocytes 22 % 12-44 Blood monocytes/100 leukocytes 6 % 0-12 Automated blood eosinophils/100 leukocytes 2 % 0-10 Automated blood basophils/100 leukocytes 0 % 0-10 Blood neutrophils automated count (number/volume) 6.3 10*3 1.8-7.8 Blood lymphocytes automated count (number/volume) 2.0 10*3 1.0-4.0 Blood monocytes automated count (number/volume) 0.5 10*3 0.0-1.0 Automated eosinophil count 0.2 10*3/uL 0.0-0.3 Automated blood basophil count (count/volume) 0.0 10*3/uL 0.0-0.1 Serum or plasma lithium measurement (moles/volume) - 05/31/16 16:19 BNP level 57.5 pg/mL <100.0 Lipase - 05/31/16 16:30 Lipase 22 U/L 8-78 PT panel in platelet poor plasma by coagulation assay - 05/31/16 16:35 Prothrombin time (PT) in platelet poor plasma by coagulation assay 13.8 s 12.2-14.7 INR in platelet poor plasma or blood by coagulation assay 1.1 0.8-1.4 Activated partial thromboplastin time (aPTT) in platelet poor plasma bycoagulation assay - 05/31/16 16:35 Activated partial thromboplastin time (aPTT) in platelet poor plasma bycoagulation assay 28 s 24-35 Fibrin D-dimer FEU measurement in platelet poor plasma (mass/volume) - 16:35 Fibrin D-dimer FEU measurement in platelet poor plasma (mass/volume) 0.38 ug/mL 0.00-0.49 Comprehensive metabolic panel - 05/31/16 16:35 Serum or plasma sodium measurement (moles/volume) 142 mmol/L 135-145 Serum or plasma potassium measurement (moles/volume) 3.8 mmol/L 3.6-5.0 Serum or plasma chloride measurement (moles/volume) 109 mmol/L 98-107 Carbon dioxide 22 mmol/L 21-32 Serum or plasma anion gap determination (moles/volume) 11 mmol/L 5-14 Serum or plasma urea nitrogen measurement (mass/volume) 9 mg/dL 7-18 Serum or plasma creatinine measurement (mass/volume) 0.85 mg/dL 0.60-1.30 Serum or plasma urea nitrogen/creatinine mass ratio 11 NRG Serum or plasma creatinine measurement with calculation of estimated glomerular filtration rate > NRG Serum or plasma glucose measurement (mass/volume) 111 mg/dL 70-105 Serum or plasma calcium measurement (mass/volume) 8.8 mg/dL 8.5-10.1 Serum or plasma total bilirubin measurement (mass/volume) 0.7 mg/dL 0.1-1.0 Serum or plasma alkaline phosphatase measurement (enzymatic activity/volume) 86 U/L 40-136 Serum or plasma aspartate aminotransferase measurement (enzymatic activity/ volume) 14 U/L 5-34 Serum or plasma alanine aminotransferase measurement (enzymatic activity/volume ) 8 U/L 0-55 Serum or plasma protein measurement (mass/volume) 7.0 g/dL 6.4-8.2 Serum or plasma albumin measurement (mass/volume) 3.8 g/dL 3.2-4.5 Magnesium - 05/31/16 16:35 Magnesium 2.1 mg/dL 1.8-2.4 Serum or plasma troponin i.cardiac measurement (mass/volume) - 05/31/16 16:35 Serum or plasma troponin i.cardiac measurement (mass/volume) < ng/ mL <0.30 Myoglobin, serum - 05/31/16 16:35 Myoglobin, serum 52.6 ng/mL 10.0-92.0 Serum or plasma ethanol measurement (mass/volume) - 05/31/16 16:35 Serum or plasma ethanol measurement (mass/volume) < mg/dL <10 Serum or plasma troponin i.cardiac measurement (mass/volume) - 05/31/16 18:17 Serum or plasma troponin i.cardiac measurement (mass/volume) 0.65 ng /mL <0.30 Arterial blood gas measurement - 05/31/16 18:20 Blood pCO2 40 mm[Hg] 35-45 Blood pO2 56 mm[Hg] 79-93 Arterial blood bicarbonate measurement (moles/volume) 23 mmol/L 23-27 Arterial blood base excess by calculation -1.3 mmol/L - 2.5-2.5 Arterial blood oxygen saturation measurement 93 % 94-100 * Inhaled oxygen flow rate 5L NRG Arterial blood pH measurement with patient temperature correction 7.38 7.37-7.43 Arterial blood carbon dioxide, total measurement (moles/volume) 24.7 mmol/L 21.0-31.0 Body site LT RAD NRG Assessment of wrist artery patency prior to arterial puncture YES- POS NRG Setting of ventilation mode NO NRG Measurement of body temperature 96.1 NRG Urine drug screening test - 05/31/16 18:25 Urine phencyclidine detection by screening method NEGATIVE NEGATIVE Urine benzodiazepines detection by screening method POSITIVE NEGATIVE Urine cocaine detection NEGATIVE NEGATIVE Urine amphetamines detection by screening method NEGATIVE NEGATIVE Urine methamphetamine detection by screening method NEGATIVE NEGATIVE Urine cannabinoids detection by screening method POSITIVE NEGATIVE Urine opiates detection by screening method POSITIVE NEGATIVE Urine barbiturates detection NEGATIVE NEGATIVE Screening urine tricyclic antidepressants detection NEGATIVE NEGATIVE Urine methadone detection by screening method NEGATIVE NEGATIVE Urine oxycodone detection NEGATIVE NEGATIVE Urine propoxyphene detection NEGATIVE NEGATIVE Methicillin resistant Staphylococcus aureus (MRSA) screening culture - 20:40 Methicillin resistant Staphylococcus aureus (MRSA) screening culture NEG NRG Serum or plasma troponin i.cardiac measurement (mass/volume) - 06/01/16 00:25 Serum or plasma troponin i.cardiac measurement (mass/volume) 1.80 ng /mL <0.30 Complete blood count (CBC) with automated white blood cell (WBC) differential - 06/01/16 04:00 Blood leukocytes automated count (number/volume) 9.4 10*3/uL 4.3-11.0 Blood erythrocytes automated count (number/volume) 4.38 10*6/uL 4.35-5.85 Venous blood hemoglobin measurement (mass/volume) 13.6 g/dL 13.3-17.7 Blood hematocrit (volume fraction) 39 % 40-54 Automated erythrocyte mean corpuscular volume 89 [foz_us] 80-99 Automated erythrocyte mean corpuscular hemoglobin (mass per erythrocyte) 31 pg 25-34 Automated erythrocyte mean corpuscular hemoglobin concentration measurement ( mass/volume) 35 g/dL 32-36 Automated erythrocyte distribution width ratio 13.4 % 10.0-14.5 Automated blood platelet count (count/volume) 204 10*3/uL 130-400 Automated blood platelet mean volume measurement 9.9 [foz_us] 7.4-10.4 Automated blood neutrophils/100 leukocytes 69 % 42-75 Automated blood lymphocytes/100 leukocytes 25 % 12-44 Blood monocytes/100 leukocytes 5 % 0-12 Automated blood eosinophils/100 leukocytes 1 % 0-10 Automated blood basophils/100 leukocytes 0 % 0-10 Blood neutrophils automated count (number/volume) 6.5 10*3 1.8-7.8 Blood lymphocytes automated count (number/volume) 2.3 10*3 1.0-4.0 Blood monocytes automated count (number/volume) 0.5 10*3 0.0-1.0 Automated eosinophil count 0.1 10*3/uL 0.0-0.3 Automated blood basophil count (count/volume) 0.0 10*3/uL 0.0-0.1 Comprehensive metabolic panel - 06/01/16 04:00 Serum or plasma sodium measurement (moles/volume) 142 mmol/L 135-145 Serum or plasma potassium measurement (moles/volume) 3.3 mmol/L 3.6-5.0 Serum or plasma chloride measurement (moles/volume) 108 mmol/L 98-107 Carbon dioxide 23 mmol/L 21-32 Serum or plasma anion gap determination (moles/volume) 11 mmol/L 5-14 Serum or plasma urea nitrogen measurement (mass/volume) 8 mg/dL 7-18 Serum or plasma creatinine measurement (mass/volume) 0.75 mg/dL 0.60-1.30 Serum or plasma urea nitrogen/creatinine mass ratio 11 NRG Serum or plasma creatinine measurement with calculation of estimated glomerular filtration rate > NRG Serum or plasma glucose measurement (mass/volume) 91 mg/dL 70-105 Serum or plasma calcium measurement (mass/volume) 8.1 mg/dL 8.5-10.1 Serum or plasma total bilirubin measurement (mass/volume) 0.5 mg/dL 0.1-1.0 Serum or plasma alkaline phosphatase measurement (enzymatic activity/volume) 71 U/L 40-136 Serum or plasma aspartate aminotransferase measurement (enzymatic activity/ volume) 15 U/L 5-34 Serum or plasma alanine aminotransferase measurement (enzymatic activity/volume ) 6 U/L 0-55 Serum or plasma protein measurement (mass/volume) 5.6 g/dL 6.4-8.2 Serum or plasma albumin measurement (mass/volume) 3.1 g/dL 3.2-4.5 Serum or plasma phosphate measurement (mass/volume) - 06/01/16 04:00 Serum or plasma phosphate measurement (mass/volume) 3.5 mg/dL 2.3-4.7 Magnesium - 06/01/16 04:00 Magnesium 1.7 mg/dL 1.8-2.4 Lipid 1996 panel - 06/01/16 04:00 Serum or plasma triglyceride measurement (mass/volume) 162 mg/dL <150 Serum or plasma cholesterol measurement (mass/volume) 142 mg/dL < 200 Serum or plasma cholesterol in HDL measurement (mass/volume) 27 mg/ dL 40-60 Cholesterol in LDL [mass/volume] in serum or plasma by direct assay 94 mg/dL 1-129 Serum or plasma cholesterol in VLDL measurement (mass/volume) 32 mg/ dL 5-40 Complete blood count (CBC) with automated white blood cell (WBC) differential - 06/02/16 04:10 Blood leukocytes automated count (number/volume) 8.2 10*3/uL 4.3-11.0 Blood erythrocytes automated count (number/volume) 4.50 10*6/uL 4.35-5.85 Venous blood hemoglobin measurement (mass/volume) 14.1 g/dL 13.3-17.7 Blood hematocrit (volume fraction) 41 % 40-54 Automated erythrocyte mean corpuscular volume 90 [foz_us] 80-99 Automated erythrocyte mean corpuscular hemoglobin (mass per erythrocyte) 31 pg 25-34 Automated erythrocyte mean corpuscular hemoglobin concentration measurement ( mass/volume) 35 g/dL 32-36 Automated erythrocyte distribution width ratio 13.7 % 10.0-14.5 Automated blood platelet count (count/volume) 178 10*3/uL 130-400 Automated blood platelet mean volume measurement 10.0 [foz_us] 7.4-10.4 Automated blood neutrophils/100 leukocytes 65 % 42-75 Automated blood lymphocytes/100 leukocytes 28 % 12-44 Blood monocytes/100 leukocytes 6 % 0-12 Automated blood eosinophils/100 leukocytes 2 % 0-10 Automated blood basophils/100 leukocytes 0 % 0-10 Blood neutrophils automated count (number/volume) 5.3 10*3 1.8-7.8 Blood lymphocytes automated count (number/volume) 2.3 10*3 1.0-4.0 Blood monocytes automated count (number/volume) 0.5 10*3 0.0-1.0 Automated eosinophil count 0.1 10*3/uL 0.0-0.3 Automated blood basophil count (count/volume) 0.0 10*3/uL 0.0-0.1 Whole blood basic metabolic panel - 06/02/16 04:10 Serum or plasma sodium measurement (moles/volume) 142 mmol/L 135-145 Serum or plasma potassium measurement (moles/volume) 3.4 mmol/L 3.6-5.0 Serum or plasma chloride measurement (moles/volume) 108 mmol/L 98-107 Carbon dioxide 24 mmol/L 21-32 Serum or plasma anion gap determination (moles/volume) 10 mmol/L 5-14 Serum or plasma urea nitrogen measurement (mass/volume) 5 mg/dL 7-18 Serum or plasma creatinine measurement (mass/volume) 0.79 mg/dL 0.60-1.30 Serum or plasma urea nitrogen/creatinine mass ratio 6 NRG Serum or plasma creatinine measurement with calculation of estimated glomerular filtration rate > NRG Serum or plasma glucose measurement (mass/volume) 97 mg/dL 70-105 Serum or plasma calcium measurement (mass/volume) 8.0 mg/dL 8.5-10.1 Serum or plasma phosphate measurement (mass/volume) - 06/02/16 04:10 Serum or plasma phosphate measurement (mass/volume) 2.9 mg/dL 2.3-4.7 Magnesium - 06/02/16 04:10 Magnesium 2.1 mg/dL 1.8-2.4 Serum or plasma troponin i.cardiac measurement (mass/volume) - 06/02/16 04:10 Serum or plasma troponin i.cardiac measurement (mass/volume) 1.69 ng /mL <0.30 Tick identification panel - 06/02/16 04:10 Serum Ehrlichia chaffeensis IgG antibody detection <1:16 <1:16 Serum Ehrlichia chaffeensis IgM antibody detection <1:10 <1:10 Serum Rickettsia rickettsii IgG antibody assay (units/volume) < <1:16 Mandan spotted fever panel < <1:10 Francisella tularensis antibody assay <1:20 [facility] Borrelia burgdorferi (Lyme disease) antibody 0.20 0.00- 0.90 CBC With Differential/Platelet - 11/09/16 12:07 WBC 7.4 x10E3/uL 3.4-10.8 RBC 4.65 x10E6/uL 4.14-5.80 Hemoglobin 14.9 g/dL 12.6-17.7 Hematocrit 42.5 % 37.5-51.0 MCV 91 fL 79-97 MCH 32.0 pg 26.6-33.0 MCHC 35.1 g/dL 31.5-35.7 RDW 13.7 % 12.3-15.4 Platelets 213 x10E3/uL 150-379 Neutrophils 54 % Lymphs 34 % Monocytes 5 % Eos 6 % Basos 1 % Neutrophils (Absolute) 4.1 x10E3/uL 1.4-7.0 Lymphs (Absolute) 2.5 x10E3/uL 0.7-3.1 Monocytes(Absolute) 0.4 x10E3/uL 0.1-0.9 Eos (Absolute) 0.4 x10E3/uL 0.0-0.4 Baso (Absolute) 0.1 x10E3/uL 0.0-0.2 Immature Granulocytes 0 % Immature Grans (Abs) 0.0 x10E3/uL 0.0-0.1 Comp. Metabolic Panel (14) - 11/09/16 12:07 Glucose, Serum 98 mg/dL 65-99 BUN 8 mg/dL 8-27 Creatinine, Serum 0.86 mg/dL 0.76-1.27 eGFR If NonAfricn Am 94 mL/min/1.73 >59 eGFR If Africn Am 109 mL/min/1.73 >59 BUN/Creatinine Ratio 9 10-24 Sodium, Serum 142 mmol/L 134-144 Potassium, Serum 4.1 mmol/L 3.5-5.2 Chloride, Serum 102 mmol/L 96-106 Carbon Dioxide, Total 24 mmol/L 18-29 Calcium, Serum 9.1 mg/dL 8.6-10.2 Protein, Total, Serum 7.3 g/dL 6.0-8.5 Albumin, Serum 4.3 g/dL 3.6-4.8 Globulin, Total 3.0 g/dL 1.5-4.5 A/G Ratio 1.4 1.2-2.2 Bilirubin, Total 0.7 mg/dL 0.0-1.2 Alkaline Phosphatase, S 90 IU/L 39-117 AST (SGOT) 13 IU/L 0-40 ALT (SGPT) 6 IU/L 0-44 Lipid Panel - 11/09/16 12:07 Cholesterol, Total 151 mg/dL 100-199 Triglycerides 152 mg/dL 0-149 HDL Cholesterol 31 mg/dL >39 VLDL Cholesterol Stephan 30 mg/dL 5-40 LDL Cholesterol Calc 90 mg/dL 0-99 TSH - 11/09/16 12:07 TSH 0.666 uIU/mL 0.450-4.500 Complete blood count (CBC) with automated white blood cell (WBC) differential - 02/08/17 02:05 Blood leukocytes automated count (number/volume) 10.8 10*3/uL 4.3-11.0 Blood erythrocytes automated count (number/volume) 4.97 10*6/uL 4.35-5.85 Venous blood hemoglobin measurement (mass/volume) 15.7 g/dL 13.3-17.7 Blood hematocrit (volume fraction) 44 % 40-54 Automated erythrocyte mean corpuscular volume 88 [foz_us] 80-99 Automated erythrocyte mean corpuscular hemoglobin (mass per erythrocyte) 32 pg 25-34 Automated erythrocyte mean corpuscular hemoglobin concentration measurement ( mass/volume) 36 g/dL 32-36 Automated erythrocyte distribution width ratio 12.7 % 10.0-14.5 Automated blood platelet count (count/volume) 219 10*3/uL 130-400 Automated blood platelet mean volume measurement 9.3 [foz_us] 7.4-10.4 Automated blood neutrophils/100 leukocytes 62 % 42-75 Automated blood lymphocytes/100 leukocytes 28 % 12-44 Blood monocytes/100 leukocytes 7 % 0-12 Automated blood eosinophils/100 leukocytes 3 % 0-10 Automated blood basophils/100 leukocytes 0 % 0-10 Blood neutrophils automated count (number/volume) 6.7 10*3 1.8-7.8 Blood lymphocytes automated count (number/volume) 3.1 10*3 1.0-4.0 Blood monocytes automated count (number/volume) 0.8 10*3 0.0-1.0 Automated eosinophil count 0.3 10*3/uL 0.0-0.3 Automated blood basophil count (count/volume) 0.0 10*3/uL 0.0-0.1 Comprehensive metabolic panel - 02/08/17 02:05 Serum or plasma sodium measurement (moles/volume) 141 mmol/L 135-145 Serum or plasma potassium measurement (moles/volume) 2.7 mmol/L 3.6-5.0 Serum or plasma chloride measurement (moles/volume) 110 mmol/L 98-107 Carbon dioxide 18 mmol/L 21-32 Serum or plasma anion gap determination (moles/volume) 13 mmol/L 5-14 Serum or plasma urea nitrogen measurement (mass/volume) 12 mg/dL 7-18 Serum or plasma creatinine measurement (mass/volume) 0.84 mg/dL 0.60-1.30 Serum or plasma urea nitrogen/creatinine mass ratio 14 NRG Serum or plasma creatinine measurement with calculation of estimated glomerular filtration rate > NRG Serum or plasma glucose measurement (mass/volume) 107 mg/dL 70-105 Serum or plasma calcium measurement (mass/volume) 9.1 mg/dL 8.5-10.1 Serum or plasma total bilirubin measurement (mass/volume) 1.1 mg/dL 0.1-1.0 Serum or plasma alkaline phosphatase measurement (enzymatic activity/volume) 82 U/L 40-136 Serum or plasma aspartate aminotransferase measurement (enzymatic activity/ volume) 12 U/L 5-34 Serum or plasma alanine aminotransferase measurement (enzymatic activity/volume ) 7 U/L 0-55 Serum or plasma protein measurement (mass/volume) 7.3 g/dL 6.4-8.2 Serum or plasma albumin measurement (mass/volume) 4.1 g/dL 3.2-4.5 Magnesium - 02/08/17 02:05 Magnesium 1.8 mg/dL 1.8-2.4 Complete urinalysis with reflex to culture - 02/08/17 03:35 Urine color determination YELLOW NRG Urine clarity determination CLEAR NRG Urine pH measurement by test strip 7 5-9 Specific gravity of urine by test strip 1.005 1.016- 1.022 Urine protein assay by test strip, semi-quantitative NEGATIVE NEGATIVE Urine glucose detection by automated test strip NEGATIVE NEGATIVE Erythrocytes detection in urine sediment by light microscopy NEGATIVE NEGATIVE Urine ketones detection by automated test strip NEGATIVE NEGATIVE Urine nitrite detection by test strip NEGATIVE NEGATIVE Urine total bilirubin detection by test strip NEGATIVE NEGATIVE Urine urobilinogen measurement by automated test strip (mass/volume) NORMAL NORMAL Urine leukocyte esterase detection by dipstick NEGATIVE NEGATIVE Automated urine sediment erythrocyte count by microscopy (number/high power field) NONE NRG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
[2017-07-27] MEDS ORDERED: NITRO DRIP 25000 MCG/D5W 0 ML IV ONE (13:39)
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
[2017-07-27] MEDS ORDERED: ONDANSETRON 4 MG/2 ML (SDV) Z0FRAN ONE (13:41)
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
[2017-07-27] MEDS ORDERED: ONDANSETRON 4 MG/2 ML (SDV) Z0FRAN IVP ONE (13:45)
[2017-07-27] MEDS ORDERED: NITRO DRIP 25000 MCG/D5W 250 ML IV SCH (13:45)
[2017-07-27] MEDS ORDERED: ASPIRIN 325 MG (5 GR) TABLET PO ONE (13:45)
[2017-07-27 13:46] LABS: BASOPHILS % (AUTO) 0 % (0-10); EOSINOPHILS # (AUTO) 0.2 10^3/uL (0.0-0.3); EOSINOPHILS % (AUTO) 2 % (0-10); HEMATOCRIT 47 % (40-54); HEMOGLOBIN 16.7 G/DL (13.3-17.7); LYMPHOCYTES # (AUTO) 3.9 X 10^3 (1.0-4.0); LYMPHOCYTES % (AUTO) 35 % (12-44); MEAN CORPUSCULAR HEMOGLOBIN 32 PG (25-34); MEAN CORPUSCULAR HGB CONC 36 G/DL (32-36); MEAN CORPUSCULAR VOLUME 88 FL (80-99); MEAN PLATELET VOLUME 9.9 FL (7.4-10.4); MONOCYTES # (AUTO) 0.8 X 10^3 (0.0-1.0); MONOCYTES % (AUTO) 7 % (0-12); NEUTROPHILS # (AUTO) 6.3 X 10^3 (1.8-7.8); NEUTROPHILS % (AUTO) 56 % (42-75); PLATELET COUNT 226 10^3/uL (130-400); RED CELL DISTRIBUTION WIDTH 13.7 % (10.0-14.5); WHITE BLOOD COUNT 11.3 10^3/uL (4.3-11.0)
[2017-07-27] MEDS ORDERED: TICAGRELOR 90 MG TABLET (BRILINTA) PO ONE (13:56)
[2017-07-27 14:08] LABS: PROTHROMBIN TIME PATIENT 13.7 SEC (12.2-14.7)
[2017-07-27] MEDS ORDERED: ADENOSINE 3 MG/1 ML (ADENOSCAN) 30ML VIAL IV ONE ×2 (14:08→14:20)
[2017-07-27 14:09] LABS: ALANINE AMINOTRANSFERASE 8 U/L (0-55); ALBUMIN 4.1 GM/DL (3.2-4.5); ALKALINE PHOSPHATASE 81 U/L (40-136); BILIRUBIN,TOTAL 1.4 MG/DL (0.1-1.0); BUN/CREATININE RATIO 11; CALCIUM 9.2 MG/DL (8.5-10.1); CARBON DIOXIDE 20 MMOL/L (21-32); CHLORIDE 111 MMOL/L (98-107); CREATININE SERUM 0.85 MG/DL (0.60-1.30); GFR ESTIMATED > 60; GLUCOSE 120 MG/DL (70-105); POTASSIUM 3.4 MMOL/L (3.6-5.0); SODIUM 141 MMOL/L (135-145)
--- NOTE | 2017-07-27 14:10 | Diagnostic Imaging Report ---
Indication: Chest pain Exam: Portable chest at 1:47 PM Findings: The heart size and pulmonary vascularity are normal. The lungs are clear. There are no effusions or pneumothoraces. Impression: Negative chest. Dictated by: Dictated on workstation # [id number]
[2017-07-27 14:15] LABS: MYOGLOBIN SERUM 75.9 NG/ML (10.0-92.0)
[2017-07-27] MEDS ORDERED: meTOprolol 5 MG/5 ML (LOPRESSOR) VIAL ONE (14:40)
[2017-07-27] MEDS: HEParin 1000 UNIT/ML (10ML VIAL) FOR BOLUS IV SCH ×2 (14:44→14:49)
[2017-07-27] MEDS: fentaNYL INJECTION 100 MCG/2 ML AMP IVP PRN ×3 (16:39→22:18)
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
--- NOTE | 2017-07-27 17:04 | Cardiac Procedure Note-CS/ASA ---
Pre-Procedure Note Pre-Op Procedure Note H&P Reviewed The H&P was reviewed, patient examined and no changes noted. Date H&P Reviewed: July 27, 2017 Time H&P Reviewed: 13:45 Conscious Sedation Pre-Proced Time Reviewed: 13:45 ASA Class: 3 Airway Mallampati Classification: (crow appropriate class) I. II. III, IV Lungs Heart ASA score ASA 1: a normal healthy patient ASA 2: a patient with a mild systemic disease (mid diabetes, controlled hypertension, obesity ASA 3: a patient with a severe systemic disease that limits activity (angina , COPD, prior Myocardial infarction) ASA 4: a patient with an incapacitating disease that is a constant threat to life (CHF, renal failure) ASA 5: a moribund patient not expected to survive 24 hrs. (ruptured aneurysm) ASA 6: a declared brain patient whose organs are being harvested. For emergent operations, add the letter E after the classification Grade 1 Sedation Plan: Analgesia, Amnesia, Plan communicated to team members, Discussed options with patient/fam, Discussed risks with patient/fam Note The patient is an appropriate candidate to undergo the planned procedure, sedation, and anesthesia. The patient immediately re-assessed prior to indication. Delilah WADSWORTH MD July 27, 2017 5:04 pm
--- NOTE | 2017-07-27 17:12 | Coronary Angiography Report ---
Coronary Angiography Report DATE OF PROCEDURE: 07/27/17 INDICATION: Severe chest pain, ST elevation in anterior lateral leads, hypertensive emergency. PREOPERATIVE DIAGNOSIS: Severe chest pain, ST elevation in anterior and lateral leads, hypertensive emergency. POSTOPERATIVE DIAGNOSIS: Likely stress induced cardiomyopathy. HISTORY: This is a 61-year-old gentleman with previous history of mild to moderate CAD, who presents after severe stress at home with chest pain and EKG showing ST elevation in anterior/lateral leads. Initial working diagnosis was acute MS. Therefore, the patient was scheduled for coronary angiography. PROCEDURES PERFORMED: 1.Coronary angiography. 2.Left heart catheterization. 3. Aortic root angiography. 4. FFR to mid LAD and mid RCA. COMPLICATIONS: None. SPECIMENS: None. ESTIMATED BLOOD LOSS: 10 mL ANESTHESIA: Conscious sedation ANTICOAGULATION: IV heparin CONTRAST: 150 mL FLUOROSCOPY: 7.8 minutes. FLOUROSCOPY DOSE: [id number] mgy PROCEDURE DETAILS: The patient is a 61 male and was brought to the lab analyst after informed consent was taken. All the risks and complications were explained in detail; this included the risk of bleeding, vascular damage, stroke , MS and even . The patient was draped and prepped in the usual sterile fashion. Access was gained in the right femoral artery with a 6 [place] sheath. Coronary angiography and left heart catheterization was performed with a JR4, EBU 3.5 guide and pigtail catheter. Aortic arch angiogram was performed with pigtail catheter. Left coronary system was engaged with an EBU 3.5 guide catheter since the EKG showed ST elevations in the anterior/lateral leads. FINDINGS: 1.Left main: Patent. 2.LAD: Moderate disease in the midsegment. Transapical vessel. 3.Left circumflex artery: No significant disease. 4.RCA: Moderate mid RCA stenosis with NARCISA-3 flow. 5.Left heart catheterization: LV 217/88 mmHg, aortic pressure, 207/86 mmHg LVEDP 23 mmHg. Severe hypokinesis/akinesis distal anterior wall, apical and inferior apical wall. Normal wall motion in the basal segments. LVEF 35-40%. No gradient across the aortic valve. 6. Aortic arch angiography: No evidence of aneurysm or dissection. Proximal segments of the great arteries are normal including brachiocephalic artery, left common carotid artery and left subclavian artery. Recommendations: FFR to mid LAD is recommended. FFR to the mid RCA is recommended. FFR details: EBU 3.5 guide catheter, FFR wire, IV heparin for anticoagulation. The lesion in the mid LAD was crossed with a FFR wire. Baseline FFR was 0.97. Adenosine IV was started at 140 g/KG/minute for 2-1/2 minutes. Lowest FFR was 0.92, which is normal. The wire was taken out and post-angiography did not show any vascular complication. We then took a JR4 guide catheter, FFR wire. The lesion in the mid RCA was crossed with a FFR wire. Baseline FFR was 0.94. Adenosine IV was started. Lowest FFR was 0.88 which is normal therefore PCI is not required. The wire was taken out and post-angiography did not show any complication. Patient tolerated procedure well and did not have any complication. Patient had significantly elevated blood pressure with systolic blood pressure of 200 mmHg. Patient was given Lopressor IV, sublingual nitroglycerin with no significant relief therefore nitroglycerin infusion was started. CONCLUSIONS: Stress induced Cardiomyopathy (Takasubo Syndrome). Mild to moderate CAD. Aggressive Cardiomyopathy treatment with BB and EMY inhibitors. Echocardiogram. Treatment for severe HTN. Nhan Gr MD, FACP, FACC, [facility] Interventional Cardiology Delilah GR MD July 27, 2017 17:12
[2017-07-27] MEDS ORDERED: PATIENT MAY USE OWN MEDS, ALL PO SCH (17:15)
[2017-07-27] MEDS ORDERED: lisINopril 40 MG (PRINIVIL) TABLET PO SCH (17:15)
[2017-07-27] MEDS: NS IV 1000 ML 1,000 ML IV SCH (18:23)
[2017-07-27] MEDS: KETOROLAC 30 MG/ML VIAL IVP PRN ×2 (19:27→23:59)
[2017-07-27] MEDS ORDERED: meTOprolol TARTRATE 25 MG (LOPRESSOR) TABLET PO SCH (21:00)
[2017-07-28] VITALS (17 sets, daily range): BP systolic 91–143; BP diastolic 21–93
[2017-07-28] MEDS: fentaNYL INJECTION 100 MCG/2 ML AMP IVP PRN ×2 (00:22→04:19)
[2017-07-28] MEDS ORDERED: RT-ALBUTEROL SULF 2.5 MG/3 ML PRE-MIX VIAL ONE (03:58)
[2017-07-28 04:11] LABS: BASOPHILS % (AUTO) 0 % (0-10); EOSINOPHILS % (AUTO) 0 % (0-10); HEMATOCRIT 44 % (40-54); HEMOGLOBIN 15.8 G/DL (13.3-17.7); LYMPHOCYTES # (AUTO) 1.7 X 10^3 (1.0-4.0); LYMPHOCYTES % (AUTO) 13 % (12-44); MEAN CORPUSCULAR HEMOGLOBIN 32 PG (25-34); MEAN CORPUSCULAR HGB CONC 36 G/DL (32-36); MEAN CORPUSCULAR VOLUME 89 FL (80-99); MEAN PLATELET VOLUME 10.3 FL (7.4-10.4); MONOCYTES # (AUTO) 0.9 X 10^3 (0.0-1.0); MONOCYTES % (AUTO) 7 % (0-12); NEUTROPHILS # (AUTO) 10.7 X 10^3 (1.8-7.8); NEUTROPHILS % (AUTO) 81 % (42-75); PLATELET COUNT 198 10^3/uL (130-400); RED CELL DISTRIBUTION WIDTH 13.9 % (10.0-14.5); WHITE BLOOD COUNT 13.3 10^3/uL (4.3-11.0)
[2017-07-28] MEDS ORDERED: QUEtiapine 25 MG (SEROquel) TAB IMMEDIATE RELEASE ONE (04:12)
[2017-07-28] MEDS ORDERED: MELATONIN 3 MG TABLET ONE (04:12)
[2017-07-28 04:29] LABS: BUN/CREATININE RATIO 12; CALCIUM 8.5 MG/DL (8.5-10.1); CARBON DIOXIDE 16 MMOL/L (21-32); CHLORIDE 112 MMOL/L (98-107); CREATININE SERUM 0.82 MG/DL (0.60-1.30); GFR ESTIMATED > 60; GLUCOSE 114 MG/DL (70-105); MAGNESIUM 1.9 MG/DL (1.8-2.4); PHOSPHORUS 2.6 MG/DL (2.3-4.7); POTASSIUM 3.7 MMOL/L (3.6-5.0); SODIUM 140 MMOL/L (135-145)
[2017-07-28 04:31] LABS: CHOLESTEROL 138 MG/DL (< 200); HDL CHOLESTEROL 32 MG/DL (40-60); TRIGLYCERIDES 96 MG/DL (<150); VLDL CHOLESTEROL 19 MG/DL (5-40)
[2017-07-28] MEDS ORDERED: RT-ALBUTEROL/IPRATROPIUM 3 ML (DUONEB) VIAL INH PRN (04:45)
--- NOTE | 2017-07-28 07:39 | Diagnostic Imaging Report ---
INDICATION: Heart disease. Comparison made with prior examination 07/27/2017. FINDINGS: Heart size is normal. There is some central pulmonary venous congestion. There is no pleural effusion or pneumothorax. Mediastinum is unremarkable. IMPRESSION: Moderate central pulmonary venous congestion which appears to have increased slightly since prior examination. Dictated by: Dictated on workstation # [id number]
[2017-07-28] MEDS: NS IV 1000 ML 1,000 ML IV SCH ×2 (09:29→13:14)
[2017-07-28] MEDS ORDERED: lisINopril 40 MG (PRINIVIL) TABLET PO SCH (09:30)
[2017-07-28] MEDS ORDERED: meTOprolol TARTRATE 25 MG (LOPRESSOR) TABLET PO SCH (09:30)
[2017-07-28] MEDS: RT-ALBUTEROL/IPRATROPIUM 3 ML (DUONEB) VIAL INH SCH ×2 (09:34→15:30)
[2017-07-28] MEDS ORDERED: ASPI-983 PO (09:53)
[2017-07-28] MEDS ORDERED: METO-387 PO (09:55)
[2017-07-28] MEDS ORDERED: lisINopril 5 MG (PRINIVIL) TABLET PO SCH (11:45)
--- NOTE | 2017-07-28 12:43 | Cardiology Progress Note ---
Cardiology SOAP Progress Note Subjective: Chest pain is much improved. Objective: I&O/Vital Signs 07/28/17 07/28/17 07/28/17 07/28/17 01:00 01:00 02:00 03:00 Pulse 66 63 68 57 B/P (MAP) 140/93 (109) 143/78 (99) 129/71 (90) Pulse Ox 95 94 92 O2 Delivery Nasal Cannula Nasal Cannula Nasal Cannula O2 Flow Rate 2.00 2.00 2.00 07/28/17 07/28/17 07/28/17 07/28/17 04:00 04:00 04:10 04:10 Pulse 59 67 B/P (MAP) 131/79 (96) Pulse Ox 97 95 97 97 O2 Delivery Nasal Cannula Nasal Cannula Mechanical Ventilator O2 Flow Rate 2.00 2.00 2.00 07/28/17 07/28/17 07/28/17 07/28/17 05:00 06:00 06:47 07:00 Pulse 75 86 69 65 B/P (MAP) 104/57 (73) 91/66 (74) 95/21 (45) Pulse Ox 96 97 99 O2 Delivery Nasal Cannula Nasal Cannula Nasal Cannula O2 Flow Rate 2.00 2.00 2.00 07/28/17 07/28/17 07/28/17 07/28/17 08:00 08:36 08:39 09:00 Temp 97.7 Pulse 62 60 B/P (MAP) 109/66 (80) 105/80 (88) Pulse Ox 97 95 97 O2 Delivery Nasal Cannula Nasal Cannula Nasal Cannula Nasal Cannula O2 Flow Rate 2.00 2.00 2.00 2.00 07/28/17 07/28/17 07/28/17 07/28/17 09:27 09:34 10:00 11:00 Pulse 65 61 Resp 28 18 B/P (MAP) 104/57 (73) 100/63 (75) Pulse Ox 95 98 96 95 O2 Delivery Room Air Nasal Cannula Nasal Cannula Nasal Cannula O2 Flow Rate 1.00 2.00 2.00 07/28/17 12:00 Pulse 67 Resp 18 B/P (MAP) 103/65 (78) Pulse Ox 95 O2 Delivery Nasal Cannula O2 Flow Rate 2.00 07/28/17 00:00 Intake Total 100 ml Output Total 200 ml Balance -100 ml Weight (Pounds): 178 Weight (Ounces): 0.0 Weight (Calculated Kilograms): [id number] Constitutional: appears stated age, AAO x 3; No apparent distress; well- developed, well-nourished Respiratory: chest is bilaterally symmetric, lungs clear to auscultation Cardiovascular: regular rate-rhythm, S1 and S2 Gastrointestional: No tender, No soft, No round, No distended, No pulsatile mass, No organomegaly, No guarding, No rebound, No tenderness, No hernia, No mass, No audible bowel sounds, No abnormal bowel sounds, No abdominal bruits, No spleenomegaly, No other Extremities: No normal range of motion, No non-tender, No normal inspection, No pedal edema, No calf tenderness, No normal capillary refill, No pelvis stable , No calf tenderness, No inflammation, No pedal edema, No slow capillary refill , No swelling, No other, No abrasion, No clubbing, No cyanosis, No ecchymosis, No laceration, No no lower extremity edema bilateral, No significant edema, No tenderness, No wound Neurologic/Psychiatric: alert, oriented x 3, power is 5/5 both on sides Skin: No normal color, No warm/dry, No cyanosis, No cool, No diaphoresis, No damp, No ecchymosis, No jaundice, No mottled, No pallor, No rash, No tattoos/ piercings, No ulcerations, No rash on exposed areas, No ulcerations on exposed areas, No other Results/Procedures: Labs Laboratory Tests 07/27/17 13:38: White Blood Count 11.3H, Red Blood Count 5.30, Hemoglobin 16.7, Hematocrit 47, Mean Corpuscular Volume 88, Mean Corpuscular Hemoglobin 32, Mean Corpuscular Hemoglobin Concent 36, Red Cell Distribution Width 13.7, Platelet Count 226, Mean Platelet Volume 9.9, Neutrophils (%) (Auto) 56, Lymphocytes (%) (Auto) 35, Monocytes (%) (Auto) 7, Eosinophils (%) (Auto) 2, Basophils (%) (Auto) 0, Neutrophils # (Auto) 6.3, Lymphocytes # (Auto) 3.9, Monocytes # (Auto) 0.8, Eosinophils # (Auto) 0.2, Basophils # (Auto) 0.0, Prothrombin Time 13.7, INR Comment 1.0, Activated Partial Thromboplast Time 26, Sodium Level 141, Potassium Level 3.4L, Chloride Level 111H, Carbon Dioxide Level 20L, Anion Gap 10, Blood Urea Nitrogen 9, Creatinine 0.85, Estimat Glomerular Filtration Rate > 60, BUN/Creatinine Ratio 11, Glucose Level 120H, Calcium Level 9.2, Magnesium Level 2.0, Total Bilirubin 1.4H, Aspartate Amino Transf (AST/SGOT) 14, Alanine Aminotransferase (ALT/SGPT) 8, Alkaline Phosphatase 81, Myoglobin 75.9, Troponin I < 0.30, Total Protein 7.0, Albumin 4.1 07/28/17 03:32: White Blood Count 13.3H, Red Blood Count 5.00, Hemoglobin 15.8, Hematocrit 44, Mean Corpuscular Volume 89, Mean Corpuscular Hemoglobin 32, Mean Corpuscular Hemoglobin Concent 36, Red Cell Distribution Width 13.9, Platelet Count 198, Mean Platelet Volume 10.3, Neutrophils (%) (Auto) 81H, Lymphocytes (%) (Auto) 13 , Monocytes (%) (Auto) 7, Eosinophils (%) (Auto) 0, Basophils (%) (Auto) 0, Neutrophils # (Auto) 10.7H, Lymphocytes # (Auto) 1.7, Monocytes # (Auto) 0.9, Eosinophils # (Auto) 0.0, Basophils # (Auto) 0.0, Sodium Level 140, Potassium Level 3.7, Chloride Level 112H, Carbon Dioxide Level 16L, Anion Gap 12, Blood Urea Nitrogen 10, Creatinine 0.82, Estimat Glomerular Filtration Rate > 60, BUN/ Creatinine Ratio 12, Glucose Level 114H, Calcium Level 8.5, Magnesium Level 1.9 , Phosphorus Level 2.6, Triglycerides Level 96, Cholesterol Level 138, LDL Cholesterol Direct 98, VLDL Cholesterol 19, HDL Cholesterol 32L A/P: Assessment/Dx: Severe chest pain, with ST elevation in anterior/lateral leads, Hypertensive emergency, Active smoking, Leukocytosis, Hypokalemia, Low bicarbonate Plan: Severe chest pain, with ST elevation in anterior/lateral leads, emergent coronary angiography. Informed consent taken before proceeding with coronary angiography. aspirin, brilinta, heparin. Coronary angiography showed mild to moderate CAD with FFR of the LAD negative and FFR of RCA was also negative. LV gram showed stress-induced cardiomyopathy. LVEF 35 percent. Echocardiogram. Hypertension: Much better controlled. Low-dose Lopressor and lisinopril. IV fluids. Active smoking, I will discuss about smoking cessation. Leukocytosis, unclear etiology. I will request medical consultation from Dr. Cassandra Castillo. Hypokalemia, will replace. Low bicarbonate, will follow. Thank you for your consultation. Please call me if you have any questions. Nhan Gr MD, FACP, FACC, FSCAI, FHRS, CCDS Interventional Cardiology Cardiac Electrophysiology Vascular Medicine and Endovascular Interventions Clinical Quality Measures AMI/AHF: ASA po Prior to arrival: Delilah Grove MD July 28, 2017 12:43 pm
[2017-07-28] MEDS ORDERED: QUET25TA PO (15:28)
[2017-07-28] MEDS ORDERED: ASPIRIN 81 MG CHEW (CHILDREN'S ASA) ONE (16:08)
[2017-07-28] MEDS ORDERED: CLOPIDOGREL 75 MG (PLAVIX) TABLET ONE (16:08)
[2017-07-28] MEDS ORDERED: ASPIRIN 81 MG CHEW (CHILDREN'S ASA) PO NR (16:15)
[2017-07-28] MEDS ORDERED: CLOPIDOGREL 75 MG (PLAVIX) TABLET PO NR (16:15)
[2017-07-29] MEDS ORDERED: lisINopril 5 MG (PRINIVIL) TABLET PO SCH (09:00)
--- NOTE | 2017-07-29 15:41 | Cardiology Discharge Summary ---
Diagnosis/Chief Complaint Date of Admission 07/27/2017 Date of Discharge 07/28/2017 Admission Diagnosis Chest pain Final/Discharge Diagnosis Stress-induced cardiomyopathy, positive troponin, severe hypertension Chief Complaint/HPI Chief Complaint/HPI This is a 61-year-old gentleman who has history of smoking, hypertension. His had history of mild CAD, and has been admitted a few times previously in the hospital for chest pain and has had coronary angiography with only mild to moderate CAD. As inpatient consultations he has seen both Dr. Welsh in [place], however he did not follow with any assistant financial accountant as an outpatient. He presented with severe chest pain today after a very stressful situation at home involving his . EMS was called and EKG showed anterior/lateral ST elevation and therefore we were consulted for possible STEMI. He was brought in to the ER and given aspirin, Plavix which he vomited, IV heparin and emergently sent to the Material Damage Appraiser. I spoke to him before coronary angiography and took a consent about risks and complications including vascular damage, bleeding, stroke, VT and even . Discharge Summary Procedures Coronary angiography shows mild to moderate CAD. Negative FFR of the LAD and RCA. LVEF 40 percent Discharge Physical Examination Normal cardiovascular examination. Normal respiratory examination. Hospital Course Patient continued to have mild chest discomfort which was treated with fentanyl and then nonnarcotics. Patient was started on aspirin, Plavix, beta beka and EMY inhibitor. Positive troponin likely due to severe stress-induced cardiomyopathy. Discussion & Recommendations Discussion Discharge instructions was discussed with the patient and family. Follow up appt.: Primary care physician in 7-[address] Gr in 7-10 days. Dicharge Diet: Low Sodium Diet Activity as Tolerated: Yes Home Medications Reviewed patient Home Medication Reconciliation performed by pharmacy medication reconciliations control systems technician and/or nursing. Patients Allergies have been reviewed. Discharge Home Medications: Reviewed and agree with Discharge Medication list on patient's Discharge Instruction sheet Condition at discharge Stable. Instructions to patient/family Stable Clinical Quality Measures AMI/AHF: ASA po Prior to arrival: No DVT/VTE Risk/Contraindication: Risk Factor Score Per Nursin RFS Level Per Nursing on Admit: 3=High Delilah GR MD July 29, 2017 15:41
--- OUTSIDE RECORDS SUMMARY | 2017-08-01 14:24 | XMS REPORT | Continuity of Care Document ---
Author Author [facility] Organization [facility] [address] Address Unknown Phone Unavailable Allergies Active Description [...] ESCAMILLA MD Ot 414.01 CORONARY ATHEROSCLEROSIS OF [place] CORON 05/31/2016 PRECIOUS ESCAMILLA MD Ot 496 [...] MD, Ot I25.110 ATHSCL HEART DISEASE OF [place] COR ART W 06/02/2016 JULIO CESAR SANDOVAL [...] MD Ot 368.9 VISUAL DISTURBANCE NOS 02/08/2017 RPECIOUS ESCAMILLA MD Ot 401.9 HYPERTENSION NOS 02/08/2017 PRECIOUS ESCAMILLA MD Ot 414.01 CORONARY ATHEROSCLEROSIS OF [place] CORON 02/08/2017 PRECIOUS ESCAMILLA MD Ot 496 [...] MD Ot I25.10 ATHSCL HEART DISEASE OF [place] CORONARY 02/08/2017 ALCIDES MALONEY MD Ot I25.2 [...] UNSPECIFIED 02/08/2017 ALCIDES MALONEY MD Ot 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 02/08/2017 ALCIDES MALONEY MD Ot Z87.19 PERSONAL HISTORY OF OTHER DISEASES OF TH 02/08/2017 ALCIDES MALONEY MD, Ot Z87.820 PERSONAL HISTORY OF TRAUMATIC BRAIN INJU 02/08/2017 ALCIDES MALONEY MD Ot Z98.1 ARTHRODESIS STATUS Procedures Code Description Performed By Performed On [id number] MEASURE OF CARDIAC SAMPL PRESSURE, L H 06/01/2016 [id number] FLUOROSCOPY OF MULT COR ART USING L OSM 06/01/2016 [id number] FLUOROSCOPY OF LEFT HEART USING LOW OSMO 06/01/2016 [id number] FLUOROSCOPY OF THORACIC AORTA USING LOW 06/01/2016 [...] rickettsii IgG antibody assay (units/volume) < <1:16 [place] spotted fever panel < <1:10 Francisella tularensis antibody assay <1:20 [facility] Borrelia burgdorferi (Lyme disease) antibody [...] NEGATIVE NEGATIVE Urine propoxyphene detection NEGATIVE NEGATIVE Complete blood count (CBC) with automated white blood cell (WBC) differential - 07/27/17 13:38 Blood leukocytes automated count (number/volume) 11.3 10*3/uL 4.3-11.0 Blood erythrocytes automated count (number/volume) 5.30 10*6/uL 4.35-5.85 Venous blood hemoglobin measurement (mass/volume) 16.7 g/dL 13.3-17.7 Blood hematocrit (volume fraction) 47 % 40-54 Automated erythrocyte mean corpuscular volume 88 [foz_us] 80-99 Automated erythrocyte mean corpuscular hemoglobin (mass per erythrocyte) 32 pg 25-34 Automated erythrocyte mean corpuscular hemoglobin concentration measurement ( mass/volume) 36 g/dL 32-36 Automated erythrocyte distribution width ratio 13.7 % 10.0-14.5 Automated blood platelet count (count/volume) 226 10*3/uL 130-400 Automated blood platelet mean volume measurement 9.9 [foz_us] 7.4-10.4 Automated blood neutrophils/100 leukocytes 56 % 42-75 Automated blood lymphocytes/100 leukocytes 35 % 12-44 Blood monocytes/100 leukocytes 7 % 0-12 Automated blood eosinophils/100 leukocytes 2 % 0-10 Automated blood basophils/100 leukocytes 0 % 0-10 Blood neutrophils automated count (number/volume) 6.3 10*3 1.8-7.8 Blood lymphocytes automated count (number/volume) 3.9 10*3 1.0-4.0 Blood monocytes automated count (number/volume) 0.8 10*3 0.0-1.0 Automated eosinophil count 0.2 10*3/uL 0.0-0.3 Automated blood basophil count (count/volume) 0.0 10*3/uL 0.0-0.1 PT panel in platelet poor plasma by coagulation assay - 07/27/17 13:38 Prothrombin time (PT) in platelet poor plasma by coagulation assay 13.7 s 12.2-14.7 INR in platelet poor plasma or blood by coagulation assay 1.0 0.8-1.4 Comprehensive metabolic panel - 07/27/17 13:38 Serum or plasma sodium measurement (moles/volume) 141 mmol/L 135-145 Serum or plasma potassium measurement (moles/volume) 3.4 mmol/L 3.6-5.0 Serum or plasma chloride measurement (moles/volume) 111 mmol/L 98-107 Carbon dioxide 20 mmol/L 21-32 Serum or plasma anion gap determination (moles/volume) 10 mmol/L 5-14 Serum or plasma urea nitrogen measurement (mass/volume) 9 mg/dL 7-18 Serum or plasma creatinine measurement (mass/volume) 0.85 mg/dL 0.60-1.30 Serum or plasma urea nitrogen/creatinine mass ratio 11 NRG Serum or plasma creatinine measurement with calculation of estimated glomerular filtration rate > NRG Serum or plasma glucose measurement (mass/volume) 120 mg/dL 70-105 Serum or plasma calcium measurement (mass/volume) 9.2 mg/dL 8.5-10.1 Serum or plasma total bilirubin measurement (mass/volume) 1.4 mg/dL 0.1-1.0 Serum or plasma alkaline phosphatase measurement (enzymatic activity/volume) 81 U/L 40-136 Serum or plasma aspartate aminotransferase measurement (enzymatic activity/ volume) 14 U/L 5-34 Serum or plasma alanine aminotransferase measurement (enzymatic activity/volume ) 8 U/L 0-55 Serum or plasma protein measurement (mass/volume) 7.0 g/dL 6.4-8.2 Serum or plasma albumin measurement (mass/volume) 4.1 g/dL 3.2-4.5 Magnesium - 07/27/17 13:38 Magnesium 2.0 mg/dL 1.8-2.4 Activated partial thromboplastin time (aPTT) in platelet poor plasma bycoagulation assay - 07/27/17 13:38 Activated partial thromboplastin time (aPTT) in platelet poor plasma bycoagulation assay 26 s 24-35 Myoglobin, serum - 07/27/17 13:38 Myoglobin, serum 75.9 ng/mL 10.0-92.0 Serum or plasma troponin i.cardiac measurement (mass/volume) - 07/27/17 13:38 Serum or plasma troponin i.cardiac measurement (mass/volume) < ng/ mL <0.30 Myoglobin, serum - 07/27/17 13:38 Myoglobin, serum 75.9 ng/mL 10.0-92.0 Complete blood count (CBC) with automated white blood cell (WBC) differential - 07/28/17 03:32 Blood leukocytes automated count (number/volume) 13.3 10*3/uL 4.3-11.0 Blood erythrocytes automated count (number/volume) 5.00 10*6/uL 4.35-5.85 Venous blood hemoglobin measurement (mass/volume) 15.8 g/dL 13.3-17.7 Blood hematocrit (volume fraction) 44 % 40-54 Automated erythrocyte mean corpuscular volume 89 [foz_us] 80-99 Automated erythrocyte mean corpuscular hemoglobin (mass per erythrocyte) 32 pg 25-34 Automated erythrocyte mean corpuscular hemoglobin concentration measurement ( mass/volume) 36 g/dL 32-36 Automated erythrocyte distribution width ratio 13.9 % 10.0-14.5 Automated blood platelet count (count/volume) 198 10*3/uL 130-400 Automated blood platelet mean volume measurement 10.3 [foz_us] 7.4-10.4 Automated blood neutrophils/100 leukocytes 81 % 42-75 Automated blood lymphocytes/100 leukocytes 13 % 12-44 Blood monocytes/100 leukocytes 7 % 0-12 Automated blood eosinophils/100 leukocytes 0 % 0-10 Automated blood basophils/100 leukocytes 0 % 0-10 Blood neutrophils automated count (number/volume) 10.7 10*3 1.8-7.8 Blood lymphocytes automated count (number/volume) 1.7 10*3 1.0-4.0 Blood monocytes automated count (number/volume) 0.9 10*3 0.0-1.0 Automated eosinophil count 0.0 10*3/uL 0.0-0.3 Automated blood basophil count (count/volume) 0.0 10*3/uL 0.0-0.1 Whole blood basic metabolic panel - 07/28/17 03:32 Serum or plasma sodium measurement (moles/volume) 140 mmol/L 135-145 Serum or plasma potassium measurement (moles/volume) 3.7 mmol/L 3.6-5.0 Serum or plasma chloride measurement (moles/volume) 112 mmol/L 98-107 Carbon dioxide 16 mmol/L 21-32 Serum or plasma anion gap determination (moles/volume) 12 mmol/L 5-14 Serum or plasma urea nitrogen measurement (mass/volume) 10 mg/dL 7-18 Serum or plasma creatinine measurement (mass/volume) 0.82 mg/dL 0.60-1.30 Serum or plasma urea nitrogen/creatinine mass ratio 12 NRG Serum or plasma creatinine measurement with calculation of estimated glomerular filtration rate > NRG Serum or plasma glucose measurement (mass/volume) 114 mg/dL 70-105 Serum or plasma calcium measurement (mass/volume) 8.5 mg/dL 8.5-10.1 Serum or plasma phosphate measurement (mass/volume) - 07/28/17 03:32 Serum or plasma phosphate measurement (mass/volume) 2.6 mg/dL 2.3-4.7 Magnesium - 07/28/17 03:32 Magnesium 1.9 mg/dL 1.8-2.4 Lipid 1996 panel - 07/28/17 03:32 Serum or plasma triglyceride measurement (mass/volume) 96 mg/dL <150 Serum or plasma cholesterol measurement (mass/volume) 138 mg/dL < 200 Serum or plasma cholesterol in HDL measurement (mass/volume) 32 mg/ dL 40-60 Cholesterol in LDL [mass/volume] in serum or plasma by direct assay 98 mg/dL 1-129 Serum or plasma cholesterol in VLDL measurement (mass/volume) 19 mg/ dL 5-40 Serum or plasma troponin i.cardiac measurement (mass/volume) - 07/28/17 03:32 Serum or plasma troponin i.cardiac measurement (mass/volume) 6.46 ng /mL <0.30 Serum or plasma troponin i.cardiac measurement (mass/volume) - 07/28/17 14:15 Serum or plasma troponin i.cardiac measurement (mass/volume) 3.63 ng /mL <0.30 Encounters ACCT No. Visit Date/Time Discharge Status Pt. Type Provider Facility Loc./Unit Complaint [id number] 07/27/2017 13:35:00 07/28/2017 16:35:00 DIS Outpatient Delilah WADSWORTH MD [facility] [address] [facility] CATH CHEST PAIN [id number] 02/08/2017 01:51:00 02/08/2017 04:18:00 DIS Emergency ALCIDES MALONEY MD [facility] [address] ER DIARRHEA,DEHYDRATED, SHAKING,CAN'T SLEEP [id number] 05/31/2016 19:25:00 06/02/2016 10:50:00 DIS Inpatient JULIO CESAR SANDOVAL MD [facility] [address] ICU NSTEMI,HYPERTENSIVE EMERGENCY [id number] 02/07/2015 22:40:00 02/08/2015 13:48:00 DIS Inpatient PRECIOUS ESCAMILLA MD [facility] [address] CSD ELEVATED TROPONIN, CHEST PAIN, HTN [id number] 09/16/2014 14:33:00 09/16/2014 23:59:59 CLS Outpatient PRECIOUS ESCAMILLA MD [facility] [address] CARD SOFT TISSUE SWELLING RT SIDE SPINE,IRREGULAR BEAT [id number] 09/30/2013 10:35:00 09/30/2013 23:59:59 CLS Outpatient PRECIOUS ESCAMILLA MD [facility] [address] RAD VISUAL DISTURBANCES [id number] 11/30/2011 17:09:00 Document Registration [id number] 05/19/2010 11:42:00 Document Registration [id number] 11/24/2009 10:45:00 Document Registration [id number] 09/23/2009 11:25:00 Document Registration [id number] 11/10/2016 08:36:00 Document Registration [id number] 05/16/2017 10:00:00 05/16/2017 23:59:59 CLS Outpatient MARIBELL GARZA MD [facility]
== END 2017-07-28 16:35 | disposition home or self-care (01) | DRG 546 ==
LOC: EDUNIT# 13:31 → ER 13:32 → ICU 13:35 → CATH 13:35 → ICU 15:20 → CATH 15:20 → ICU 07-28 16:35 → CATH 07-28 16:35
PROVIDERS: ADMIT Internal Medicine Interventional Cardiology; ATTEND Internal Medicine Interventional Cardiology
PROC: 4A023N7 Measurement of Cardiac Sampling and Pressure, Left Heart, Percutaneous Approach (ICD-10-PCS; principal; 2017-07-27)
PROC: B2151ZZ Fluoroscopy of Left Heart using Low Osmolar Contrast (ICD-10-PCS; 2017-07-27)
PROC: B2111ZZ Fluoroscopy of Multiple Coronary Arteries using Low Osmolar Contrast (ICD-10-PCS; 2017-07-27)
PROC: B3101ZZ Fluoroscopy of Thoracic Aorta using Low Osmolar Contrast (ICD-10-PCS; 2017-07-27)
DX: M31.4 Aortic arch syndrome [Takayasu] (principal); I25.10 Atherosclerotic heart disease of native coronary artery without angina pectoris; I16.1 Hypertensive emergency; E78.00 Pure hypercholesterolemia, unspecified; E87.6 Hypokalemia; E87.8 Other disorders of electrolyte and fluid balance, not elsewhere classified; J44.9 Chronic obstructive pulmonary disease, unspecified; F17.210 Nicotine dependence, cigarettes, uncomplicated; D72.829 Elevated white blood cell count, unspecified; K21.9 Gastro-esophageal reflux disease without esophagitis; R11.2 Nausea with vomiting, unspecified; I25.2 Old myocardial infarction; Z79.82 Long term (current) use of aspirin
CPT/HCPCS: 36221; 36415; 71045; 80048; 80053; 80061; 83735; 83874; 84100; 84484; 85025; 85610; 85730; 93005; 93041; 93306; 93458; 93571; 93572; 94640; 96374; 96375

== ENCOUNTER 2017-10-23 09:00 | Outpatient (CLI) | payer MEDICARE ==
[~2017-10-23] VITALS: Ht 172.7 cm; Wt 60.8 kg
[~2017-10-23 09:00] MED LIST changes: +DIAZ5TAB3 PO; -LIDOCAINE 1% INJ 20 ML 20 ML VIAL ONE; +MELO15TA39 PO; +PRAV40TA2 PO; +QUET25TA PO; -fentaNYL INJECTION 100 MCG/2 ML AMP ONE
== END 2017-10-23 09:23 ==
LOC: PREOP 09:00
PROVIDERS: ATTEND Surgery
DX: Z01.818 Encounter for other preprocedural examination (principal); K92.1 Melena; Z86.010 Personal history of colon polyps

== ENCOUNTER 2017-11-01 12:52 | Day surgery (SDC) | payer MEDICARE ==
[~2017-11-01] VITALS: Ht 172.7 cm; Wt 60.8 kg
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
--- OUTSIDE RECORDS SUMMARY | 2017-11-01 12:58 | XMS REPORT ---
Author Author MARIBELL SANDOVAL Organization [facility] Address [address] [place] [address] Care Team Providers Care Offender Job Retention Specialist Name Role Phone MARIBELL SANDOVAL Unavailable PROBLEMS Type Condition ICD9-CM Code [id number] Code Onset Dates Condition Status SNOMED Code Problem Essential hypertension I10 Active 88675375 Problem Coronary artery disease involving [place] coronary artery of [place] heart without angina pectoris I25.10 Active 1768489697305 Problem Other chronic pain G89.29 Active 97148646 Problem Hyperlipidemia, unspecified hyperlipidemia type E78.5 Active 38544584 Problem Insomnia, unspecified type G47.00 Active 155353346 Problem Uncomplicated opioid dependence F11.20 Active 27379722 ALLERGIES No Information ENCOUNTERS Encounter Location Date Diagnosis [place] [address] [place] [address] 56740- 6589 Aug, [facility] [id number] [place] [address] 40159- 1801 July, Uncomplicated opioid dependence F11.20 ; Insomnia, unspecified type G47.00 and Coronary artery disease involving [place] coronary artery of [place] heart without angina pectoris I25.10 [facility] [address] [place] [address] 23896- 2410 May, [facility] [id number] [place] [address] 79750- 8369 Apr, Insomnia, unspecified type G47.00 ; Coronary artery disease involving [place] coronary artery of [place] heart without angina pectoris I25.10 and Essential hypertension I10 [facility] [address] [place] [address] 74582- 7619 Mar, [place] [address] [id number] [place] [address] 48100- 9295 Feb, [facility] [address] [place] [address] 18333- 0764 Jan, [facility] [id number] [place] [address] 80735- 8224 Jan, Other chronic pain G89.29 [facility] [id number] [place] [address] 62417- 5342 Jan, [facility] [id number] [place] [address] 54561- 9803 Jan, [facility] [id number] [place] [address] 40757- 0533 Jan, [facility] [id number] [place] [address] 20559- 0154 Jan, Uncomplicated opioid dependence F11.20 [facility] [id number] [place] [address] 99923- 3409 Jan, [facility] [id number] [place] [address] 90331- 7344 Dec, [facility] [id number] [place] [address] 51312- 3309 Nov, Other chronic pain G89.29 and Arm lesion L98.9 [facility] [id number] [place] [address] 11910- 4632 Nov, [facility] [id number] [place] [address] 54540- 2735 Oct, Other chronic pain G89.29 and Hyperlipidemia, unspecified hyperlipidemia type E78.5 [facility] [id number] [place] [address] 51543- 5553 Oct, [facility] [id number] [place] [address] 25387- 7587 Sep, IMMUNIZATIONS No Known Immunizations SOCIAL HISTORY Never Assessed REASON FOR VISIT Refill request PLAN OF CARE VITAL SIGNS MEDICATIONS Medication Instructions Dosage Frequency Start Date End Date Duration Status Gabapentin 300 MG Orally Three times a day 1 capsule 8h Oct, 30 day(s) Active Nabumetone 750 MG Orally Once a day 2 tablets 24h Oct, 30 days Active Clopidogrel Bisulfate 75 MG Orally Once a day 1 tablet 24h Oct, 30 day(s) Active Duloxetine HCl 60 mg Orally Once a day 1 capsule 24h Oct, 30 day(s) Active RESULTS No [...]
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
[2017-11-01] MEDS ORDERED: NS IV 500 ML 500 ML ONE (13:21)
[2017-11-01] MEDS ORDERED: NS IV 500 ML 500 ML IV PRN (13:32)
[2017-11-01] MEDS ORDERED: NS IV 1000 ML 1,000 ML IV SCH (13:45)
[2017-11-01 13:49] VITALS: BP 136/77
--- NOTE | 2017-11-01 14:08 | Conscious Sedation/ASA ---
Conscious Sedation Pre-Proced Time Reviewed: 14:00 ASA Class: 2 Airway Mallampati Classification: (seneca appropriate class) I. II. III, IV Lungs Heart ASA score ASA 1: a normal healthy patient ASA 2: a patient with a mild systemic disease (mid diabetes, controlled hypertension, obesity ASA 3: a patient with a severe systemic disease that limits activity (angina , COPD, prior Myocardial infarction) ASA 4: a patient with an incapacitating disease that is a constant threat to life (CHF, renal failure) ASA 5: a moribund patient not expected to survive 24 hrs. (ruptured aneurysm) ASA 6: a declared brain patient whose organs are being harvested. For emergent operations, add the letter E after the classification Grade 2 Sedation Plan: Analgesia, Amnesia, Plan communicated to team members, Discussed options with patient/fam, Discussed risks with patient/fam Note The patient is an appropriate candidate to undergo the planned procedure, sedation, and anesthesia. The patient immediately re-assessed prior to indication. ESMER SINGER MD Nov 01, 2017 2:08 pm
--- NOTE | 2017-11-01 14:09 | Progress Note-Pre Operative ---
Pre-Operative Progress Note H&P Reviewed The H&P was reviewed, patient examined and no changes noted. Date Seen by Provider: Nov 01, 2017 Time Seen by Provider: 14:00 Date H&P Reviewed: Nov 01, 2017 Time H&P Reviewed: 14:00 Pre-Operative Diagnosis: heme positive stool ESMER SINGER MD Nov 01, 2017 2:09 pm
[2017-11-01] MEDS ORDERED: MIDAZOLAM 2 MG/2 ML (VERSED) VIAL ONE ×5 (14:10→14:11)
[2017-11-01] MEDS ORDERED: LIDOCAINE JELLY 2% (XYLOCAINE) 5 ML TUBE ONE (14:10)
[2017-11-01] MEDS ORDERED: fentaNYL INJECTION 100 MCG/2 ML AMP ONE ×2 (14:10)
[2017-11-01] MEDS ORDERED: HYDROcodone/APAP 5 MG/325 MG (LORTAB) TAB PO PRN (14:15)
[2017-11-01] MEDS ORDERED: morphine INJ 10 MG/ML 1ML (SYR OR VIAL) IV PRN (14:15)
[2017-11-01] MEDS ORDERED: ACETAMINOPHEN 325 MG TABLET PO PRN (14:15)
[2017-11-01] MEDS ORDERED: ONDANSETRON 4 MG/2 ML (SDV) Z0FRAN IV PRN (14:15)
[2017-11-01] MEDS: MIDAZOLAM 2 MG/2 ML (VERSED) VIAL IVP PRN ×5 (14:25→14:40)
[2017-11-01] MEDS: fentaNYL INJECTION 100 MCG/2 ML AMP IVP PRN ×4 (14:26→14:41)
[2017-11-01] MEDS ORDERED: LIDOCAINE JELLY 2% (XYLOCAINE) 5 ML TUBE TOP ONE (15:00)
[2017-11-01 15:05] VITALS: BP 155/76
--- NOTE | 2017-11-01 15:09 | Progress Note-Post Operative ---
Post-Operative Progess Note Surgeon (s)/Outreach Nurse (s) Surgeon ESMER SINGER MD Outreach Nurse: none Pre-Operative Diagnosis heme positive stool Post-Operative Diagnosis mild chronic stage 1 ext and int hemorrhoids. Procedure & Operative Findings Date of Procedure 11/01/17 Procedure Performed/Findings Colonoscopy. Anesthesia Type CS Estimated Blood Loss Estimated blood loss (mL): minimal Specimens/Packing Specimens Removed none ESMER SINGER MD Nov 01, 2017 3:09 pm
--- NOTE | 2017-11-01 15:12 | Discharge Inst-Surgical ---
D/C Lap Instructions-LUCRECIA Follow Up 10 years Activity as tolerated High Fiber Diet 25g or more per day Avoid Alcohol, Caffeine, Spicy [place] and Acid foods. Drink 64 fluid oz or more of fluids per day. Symptoms to Report: Fever over 101 degree F, Nausea/Vomiting If any problems/questions: Contact your physician or go to Emergency Room ESMER SINGER MD Nov 01, 2017 3:12 pm
[2017-11-01 15:35] VITALS: BP 138/75
[2017-11-01 15:49] VITALS: BP 138/75
--- NOTE | 2017-11-02 00:36 | OPERATIVE REPORT ---
DATE OF SERVICE: 11/01/2017 ATTENDING PRIMARY CARE PHYSICIAN: Dr. Go Molina PREOPERATIVE DIAGNOSIS: Rectal bleeding screening colonoscopy. POSTOPERATIVE DIAGNOSIS: Chronic stage I external and internal hemorrhoids. The remainder of the rectum and colon appeared normal. PROCEDURE: Colonoscopy. SURGEON: Esmer Mckeon MD ANESTHESIA: Conscious sedation. ESTIMATED BLOOD LOSS: Minimal. FINDINGS: Chronic stage I external and internal hemorrhoids, not actively edematous nor inflamed and no bleeding. The remainder of the rectum and colon were normal. There were no significant diverticulosis as well as no polyps or any neoplasms identified. DISPOSITION: The patient tolerated the procedure well. INDICATIONS: The patient is a 62-year-old male in need of a followup colonoscopy. His last one was greater than 10 years ago and he did have polyps at that time; however, they were benign. He does report occasional episodes of rectal bleeding, which is small amounts and self-limited. He does also have alternating episodes of constipation and diarrhea. He does not report any family history of colon cancer; however, does have a family history of breast cancer with his mother having the disease in her 50s. DESCRIPTION OF PROCEDURE: The patient was brought to the upper endoscopy suite, laid in the left lateral decubitus position. After adequate IV pain and sedating medications and conscious sedation anesthesia, a digital rectal examination was performed. Chronic stage I external and internal hemorrhoids were identified, which are not actively edematous or inflamed and no bleeding. Normal sphincter tone was felt and there were no palpable masses. The endoscope was then intubated to the anus and rectum gently insufflated. The endoscope was then advanced through the valves of Martínez of the rectum with no polyps or any neoplasms identified. The endoscope was then advanced through the sigmoid colon where no diverticulosis identified. The endoscope was then advanced through the descending, transverse and ascending colon to the cecum. These segments were normal. There were no polyps or any neoplasms identified throughout the colon or rectum. The endoscope was then slowly withdrawn while taking a second look and suctioning residual air with no additional findings. The patient tolerated the procedure well. We will recommend medical management with high fiber diet with at least 30 grams of fiber per day as well as at least 64 fluid ounces of water daily. There were no polyps identified and the etiology of his rectal bleeding is most likely due to hemorrhoidal flareup. He does not need another colonoscopy for another 10 years; however, sooner if any problems arise. Job ID: [id number] DocumentID: [id number] Dictated Date: 11/01/2017 15:16:57 Engine Head Repairer Date: 11/02/2017 00:35:18 Dictated By: ESMER MCKEON MD
== END 2017-11-01 15:50 | disposition home or self-care (01) ==
LOC: ENDO 12:52
PROVIDERS: ATTEND Surgery
DX: K64.0 First degree hemorrhoids (principal); Z80.3 Family history of malignant neoplasm of breast; Z86.010 Personal history of colon polyps; I25.2 Old myocardial infarction; K21.9 Gastro-esophageal reflux disease without esophagitis; E78.00 Pure hypercholesterolemia, unspecified; I25.10 Atherosclerotic heart disease of native coronary artery without angina pectoris; M19.91 Primary osteoarthritis, unspecified site; F17.210 Nicotine dependence, cigarettes, uncomplicated; Z98.1 Arthrodesis status; Z79.899 Other long term (current) drug therapy; Z80.1 Family history of malignant neoplasm of trachea, bronchus and lung

== ENCOUNTER 2022-03-18 19:04 | Inpatient (IN) | payer MEDICARE ==
[~2022-03-18] VITALS: Ht 173 cm; Wt 61.8 kg
[~2022-03-18 19:04] MED LIST changes: +ACHYD1T PO; +ALBU8.5H6 IH; +ASPI-1238 PO; -ASPI-983 PO; +CLOP-31 PO; -CLOP75TA69 PO; -DIAZ5TAB3 PO; +DIAZ5TAB49 PO; -DULO60CA58 PO; +DULO60CA59 PO; -HYDR-3820 PO; -LISI-556 PO; +LISI5TAB20 PO; -LOSA50TA36 PO; +LOSA50TA63 PO; -METO-387 PO; +MTP25TSR PO; +NABU-95 PO; -RT-ALBUINH IH
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
[2022-03-18] MEDS ORDERED: morphine INJ 10 MG/ML 1ML (SYR OR VIAL) IVP STA ×2 (19:25→20:48)
[2022-03-18] MEDS ORDERED: NS IV 1000 ML 1,000 ML IV SCH (19:30)
[2022-03-18 19:34] LABS: BASOPHILS % (AUTO) 1 % (0-10); EOSINOPHILS # (AUTO) 0.2 10^3/uL (0.0-0.3); EOSINOPHILS % (AUTO) 2 % (0-10); HEMATOCRIT 44 % (40-54); HEMOGLOBIN 15.5 g/dL (13.3-17.7); LYMPHOCYTES # (AUTO) 2.3 10^3/uL (1.0-4.0); LYMPHOCYTES % (AUTO) 26 % (12-44); MEAN CORPUSCULAR HEMOGLOBIN 31 pg (25-34); MEAN CORPUSCULAR HGB CONC 35 g/dL (32-36); MEAN CORPUSCULAR VOLUME 89 fL (80-99); MEAN PLATELET VOLUME 9.6 fL (9.0-12.2); MONOCYTES # (AUTO) 0.5 10^3/uL (0.0-1.0); MONOCYTES % (AUTO) 6 % (0-12); NEUTROPHILS # (AUTO) 5.8 10^3/uL (1.8-7.8); NEUTROPHILS % (AUTO) 66 % (42-75); PLATELET COUNT 185 10^3/uL (130-400); WHITE BLOOD COUNT 8.8 10^3/uL (4.3-11.0)
[2022-03-18 19:51] LABS: ALBUMIN 4.1 GM/DL (3.2-4.5); PROTHROMBIN TIME PATIENT 13.3 SEC (12.2-14.7)
[2022-03-18 19:52] LABS: CALCIUM 9.4 MG/DL (8.5-10.1)
[2022-03-18 19:53] LABS: TOTAL PROTEIN 7.3 GM/DL (6.4-8.2)
[2022-03-18 19:55] LABS: BILIRUBIN,TOTAL 0.9 MG/DL (0.1-1.0)
[2022-03-18 19:57] LABS: CREATININE SERUM 0.94 MG/DL (0.60-1.30)
[2022-03-18 20:00] LABS: MAGNESIUM 1.9 MG/DL (1.6-2.4)
--- NOTE | 2022-03-18 20:28 | Diagnostic Imaging Report ---
INDICATION: Chest pain COMPARISON: 07/28/2017 TECHNIQUE: Single radiograph of the chest dated 03/18/2022. FINDINGS: The cardiac silhouette is within normal limits in size. Minimal central pulmonary vascular congestion. The lungs are clear of focal pulmonary opacity. No pleural effusion. No pneumothorax. No acute osseous abnormality. IMPRESSION: Minimal central pulmonary vascular congestion without significant interstitial edema or pleural effusion. Dictated by: Dictated on workstation # [id number]
[2022-03-18] MEDS ORDERED: ENOXAPARIN 80 MG/0.8 ML (LOVENOX) SYR SC ONE (20:30)
[2022-03-18] MEDS ORDERED: ONDANSETRON 4 MG/2 ML (SDV) Z0FRAN IVP ONE (21:00)
[2022-03-18] MEDS ORDERED: NS IV 500 ML 500 ML IV PRN (22:30)
[2022-03-18] MEDS ORDERED: NS IV 1000 ML 1,000 ML ONE (22:36)
[2022-03-18] MEDS ORDERED: POTASSIUM CL 10MEQ/50ML IVPB 250 ML IV ONE (22:36)
[2022-03-18] MEDS ORDERED: morphine INJ 4 MG/ML 1 ML (VIAL/SYRINGE) ONE (22:36)
[2022-03-18] MEDS: POTASSIUM CL 10MEQ/50ML IVPB 50 ML IV SCH ×2 (22:45→23:35)
[2022-03-18] MEDS ORDERED: ONDANSETRON 4 MG/2 ML (SDV) Z0FRAN IVP PRN (23:00)
[2022-03-18] MEDS: NS IV 1000 ML 1,000 ML IV SCH (23:03)
[2022-03-18 23:28] VITALS: BP 109/74
[2022-03-18] MEDS ORDERED: RT-ALBUTEROL SULF 2.5 MG/3 ML PRE-MIX VIAL INH PRN (23:45)
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
[2022-03-19] MEDS: POTASSIUM CL 10MEQ/50ML IVPB 50 ML IV SCH ×4 (00:50→04:29)
[2022-03-19 01:50] LABS: BILIRUBIN,URINE NEGATIVE (NEGATIVE); CLARITY,URINE CLEAR; COLOR,URINE YELLOW; GLUCOSE, URINE (UA) NEGATIVE (NEGATIVE); KETONES,URINE NEGATIVE (NEGATIVE); LEUKOCYTE ESTERASE ,URINE NEGATIVE (NEGATIVE); NITRITE,URINE NEGATIVE (NEGATIVE); PROTEIN,URINE NEGATIVE (NEGATIVE)
[2022-03-19 02:03] LABS: BACTERIA,URINE TRACE /HPF; SQUAMOUS EPITHELIAL CELL,UR RARE /HPF
[2022-03-19 02:06] LABS: AMPHETAMINE SCREEN, URINE NEGATIVE (NEGATIVE); BARBITURATE SCREEN URINE NEGATIVE (NEGATIVE); BENZODIAZEPINES SCREEN URINE POSITIVE (NEGATIVE); CANNABINOID SCREEN, URINE POSITIVE (NEGATIVE); COCAINE SCREEN URINE NEGATIVE (NEGATIVE); METHADONE STAT NEGATIVE (NEGATIVE); OPIATE SCREEN URINE POSITIVE (NEGATIVE); OXYCODONE STAT NEGATIVE (NEGATIVE); PROPOXYPHENE STAT NEGATIVE (NEGATIVE); TRICYCLIC ANTIDEPRESSANTS SCRE NEGATIVE (NEGATIVE)
[2022-03-19] MEDS: morphine INJ 4 MG/ML 1 ML (VIAL/SYRINGE) IV PRN ×3 (04:07→15:11)
[2022-03-19] MEDS: KCL 20 MEQ TAB (K-DUR) PO SCH (04:28)
[2022-03-19] MEDS: MAGNESIUM 1 GM/100 ML IVPB 100 ML IV SCH (04:29)
[2022-03-19 06:32] LABS: BASOPHILS % (AUTO) 1 % (0-10); EOSINOPHILS # (AUTO) 0.1 10^3/uL (0.0-0.3); EOSINOPHILS % (AUTO) 2 % (0-10); HEMATOCRIT 40 % (40-54); LYMPHOCYTES # (AUTO) 2.3 10^3/uL (1.0-4.0); LYMPHOCYTES % (AUTO) 35 % (12-44); MEAN CORPUSCULAR HEMOGLOBIN 32 pg (25-34); MEAN CORPUSCULAR HGB CONC 35 g/dL (32-36); MEAN CORPUSCULAR VOLUME 91 fL (80-99); MEAN PLATELET VOLUME 9.8 fL (9.0-12.2); MONOCYTES # (AUTO) 0.4 10^3/uL (0.0-1.0); MONOCYTES % (AUTO) 7 % (0-12); NEUTROPHILS # (AUTO) 3.7 10^3/uL (1.8-7.8); NEUTROPHILS % (AUTO) 57 % (42-75); PLATELET COUNT 156 10^3/uL (130-400); WHITE BLOOD COUNT 6.5 10^3/uL (4.3-11.0)
[2022-03-19 06:55] LABS: ALBUMIN 3.3 GM/DL (3.2-4.5)
[2022-03-19 06:56] LABS: POTASSIUM 4.1 MMOL/L (3.6-5.0)
[2022-03-19 06:57] LABS: CALCIUM 8.2 MG/DL (8.5-10.1)
[2022-03-19 06:58] LABS: TOTAL PROTEIN 5.9 GM/DL (6.4-8.2)
[2022-03-19 07:00] LABS: BILIRUBIN,TOTAL 0.9 MG/DL (0.1-1.0)
[2022-03-19 07:01] LABS: PHOSPHORUS 2.5 MG/DL (2.3-4.7)
[2022-03-19 07:02] LABS: CREATININE SERUM 0.75 MG/DL (0.60-1.30)
[2022-03-19 07:08] LABS: CHOLESTEROL 131 MG/DL (< 200); HDL CHOLESTEROL 28 MG/DL (40-60); TRIGLYCERIDES 117 MG/DL (<150); VLDL CHOLESTEROL 23 MG/DL (5-40)
[2022-03-19] MEDS: NICOTINE 21 MG (NICODERM) PATCH TD SCH (09:15)
--- NOTE | 2022-03-19 10:01 | Consultation-Cardiology ---
HPI-Cardiology Cardiology Consultation Date of Consultation 03/19/22 Date of Admission Time Seen by Provider: 09:56 Indication: Chest pain HPI 66-year-old gentleman with history of nonischemic cardiomyopathy. Not compliant with doctors appointment or medication. Has not taking any of his medication at least for the past year. Started to have chest pain, described as dull in nature in the retrosternal area radiating to the left arm. No shortness of breath or palpitation. Patient was noted to have elevation in troponin, continue to have active chest pain today. Had troponin elevation again today. I offered him cardiac catheterization and patient declined. He is concerned about the cost of the procedure. I explained to him in length that his insura nce should cover it and the hospital has assistance program that will help him with the cost. Patient still insisted on not having any procedure done. Home Medications & Allergies Allergies: Coded Allergies: No Known Drug Allergies (Unverified , 11/01/17) Home Medication List Reviewed: Yes NJQ-Rqeqsh-Tejusj Hx Patient Social History Smoking Status: Current Everyday Smoker Type Used: Cigarettes Recent Hopitalizations: No Have you traveled recently?: No Alcohol Use?: Yes Immunizations Up To Date Tetanus Booster (TDap): More than 5yrs Date of Influenza Vaccine: Nov 19, 2015 Past Medical History Discussed below Family Medical History Family History: Asthma 19 FATHER CVA Review of Systems-General Review of Systems Constitutional: see HPI, malaise, weakness EENTM: see HPI, no symptoms reported Respiratory: no symptoms reported, see HPI Cardiovascular: see HPI, chest pain; No edema, No Hx of Intervention, No palpitations, No syncope, No vascular heart diseas, No other Gastrointestinal: no symptoms reported, see HPI Genitourinary: no symptoms reported, see HPI Musculoskeletal: no symptoms reported, see HPI Skin: no symptoms reported, see HPI Psychiatric/Neurological: No Symptoms Reported, See HPI All Other Systems Reviewed Negative Unless Noted: Yes Reviewed Test Results Reviewed Test Results Lab Laboratory Tests Test 03/18/22 19:13 03/19/22 01:46 03/19/22 06:00 Range/Units White Blood Count 8.8 6.5 4.3-11.0 10^3/uL Red Blood Count 4.98 4.43 4.30-5.52 10^6/uL Hemoglobin 15.5 14.0 13.3-17.7 g/dL Hematocrit 44 40 40-54 % Mean Corpuscular Volume 89 91 80-99 fL Mean Corpuscular Hemoglobin 31 32 25-34 pg Mean Corpuscular Hemoglobin Concent 35 35 32-36 g/dL Red Cell Distribution Width 12.4 12.7 10.0-14.5 % Platelet Count 185 156 130-400 10^3/uL Mean Platelet Volume 9.6 9.8 9.0-12.2 fL Immature Granulocyte % (Auto) 0 0 % Neutrophils (%) (Auto) 66 57 42-75 % Lymphocytes (%) (Auto) 26 35 12-44 % Monocytes (%) (Auto) 6 7 0-12 % Eosinophils (%) (Auto) 2 2 0-10 % Basophils (%) (Auto) 1 1 0-10 % Neutrophils # (Auto) 5.8 3.7 1.8-7.8 10^3/uL Lymphocytes # (Auto) 2.3 2.3 1.0-4.0 10^3/uL Monocytes # (Auto) 0.5 0.4 0.0-1.0 10^3/uL Eosinophils # (Auto) 0.2 0.1 0.0-0.3 10^3/uL Basophils # (Auto) 0.0 0.0 0.0-0.1 10^3/uL Immature Granulocyte # (Auto) 0.0 0.0 0.0-0.1 10^3/uL Prothrombin Time 13.3 12.2-14.7 SEC INR Comment 1.0 0.8-1.4 Activated Partial Thromboplast Time 30 24-35 SEC Sodium Level 141 142 135-145 MMOL/L Potassium Level 3.0 L 4.1 3.6-5.0 MMOL/L Chloride Level 107 114 H 98-107 MMOL/L Carbon Dioxide Level 22 20 L 21-32 MMOL/L Anion Gap 12 8 5-14 MMOL/L Blood Urea Nitrogen 10 6 L 7-18 MG/DL Creatinine 0.94 0.75 0.60-1.30 MG/DL Estimat Glomerular Filtration Rate 90 100 BUN/Creatinine Ratio 11 8 Glucose Level 107 H 93 70-105 MG/DL Calcium Level 9.4 8.2 L 8.5-10.1 MG/DL Corrected Calcium 9.3 8.8 8.5-10.1 MG/DL Magnesium Level 1.9 2.0 1.6-2.4 MG/DL Total Bilirubin 0.9 0.9 0.1-1.0 MG/DL Aspartate Amino Transf (AST/SGOT) 20 36 H 5-34 U/L Alanine Aminotransferase (ALT/SGPT) 17 25 0-55 U/L Alkaline Phosphatase 75 70 40-136 U/L Myoglobin 89.8 10.0-92.0 NG/ML Troponin I 0.102 H 0.945 *H <0.028 NG/ML Total Protein 7.3 5.9 L 6.4-8.2 GM/DL Albumin 4.1 3.3 3.2-4.5 GM/DL Urine Color YELLOW Urine Clarity CLEAR Urine pH 6.0 5-9 Urine Specific [place] 1.010 L 1.016-1.022 Urine Protein NEGATIVE NEGATIVE Urine Glucose (UA) NEGATIVE NEGATIVE Urine Ketones NEGATIVE NEGATIVE Urine Nitrite NEGATIVE NEGATIVE Urine Bilirubin NEGATIVE NEGATIVE Urine Urobilinogen 0.2 < = 1.0 MG/DL Urine Leukocyte Esterase NEGATIVE NEGATIVE Urine RBC (Auto) NEGATIVE NEGATIVE Urine RBC NONE /HPF Urine WBC NONE /HPF Urine Squamous Epithelial Cells RARE /HPF Urine Crystals NONE /LPF Urine Bacteria TRACE /HPF Urine Casts NONE /LPF Urine Mucus NEGATIVE /LPF Urine Culture Indicated NO Urine Opiates Screen POSITIVE H NEGATIVE Urine Oxycodone Screen NEGATIVE NEGATIVE Urine Methadone Screen NEGATIVE NEGATIVE Urine Propoxyphene Screen NEGATIVE NEGATIVE Urine Barbiturates Screen NEGATIVE NEGATIVE Ur Tricyclic Antidepressants Screen NEGATIVE NEGATIVE Urine Phencyclidine Screen NEGATIVE NEGATIVE Urine Amphetamines Screen NEGATIVE NEGATIVE Urine Methamphetamines Screen NEGATIVE NEGATIVE Urine Benzodiazepines Screen POSITIVE H NEGATIVE Urine Cocaine Screen NEGATIVE NEGATIVE Urine Cannabinoids Screen POSITIVE H NEGATIVE Phosphorus Level 2.5 2.3-4.7 MG/DL Triglycerides Level 117 <150 MG/DL Cholesterol Level 131 < 200 MG/DL LDL Cholesterol Direct 87 1-129 MG/DL VLDL Cholesterol 23 5-40 MG/DL HDL Cholesterol 28 L 40-60 MG/DL Physical Exam Physical Exam Vital Signs Vital Signs - First Documented 03/18/22 03/18/22 03/18/22 19:05 19:23 23:28 Temp 35.8 Pulse 65 Resp 16 B/P (MAP) 109/74 (86) Pulse Ox 97 O2 Delivery Room Air O2 Flow Rate 2.00 FiO2 32 Capillary Refill : Less Than 3 Seconds Height, Weight, BMI Height: 5'8.00" Weight: 134lbs. 0.0oz. [id number]; 20.54 BMI Method:Estimated General Appearance: No Apparent Distress, WD/WN, Thin Eyes: Bilateral Eye Normal Inspection, Bilateral Eye PERRL, Bilateral Eye EOMI HEENT: PERRL/EOMI, TMs Normal, Normal ENT Inspection, Pharynx Normal, Moist Mucous Membranes Neck: Normal Inspection Respiratory: Lungs Clear, Normal Breath Sounds, No Accessory Muscle Use, No Respiratory Distress Cardiovascular: Regular Rate, Rhythm ( HR 50), Normal Peripheral Pulses (2+ radial pulses), Other (normal capillary refill) Gastrointestinal: Soft, Tenderness (mild diffuse tenderness) Back: Normal Inspection, No CVA Tenderness, No Vertebral Tenderness Extremity: Normal Capillary Refill, Normal Inspection, Normal Range of Motion, Non Tender, No Calf Tenderness Neurologic/Psychiatric: Alert, Oriented x3, No Motor/Sensory Deficits, Normal Mood/Affect Skin: Normal Color, Warm/Dry Lymphatic: No Adenopathy A/P-Cardiology Admission Diagnosis Chest pain Non-ST elevation myocardial infarction Dilated cardiomyopathy nonischemic cardiomyopathy Tobaccoism Assessment/Plan Non-ST elevation myocardial infarction, mild elevation in troponin level. Still having active chest pain, we will treat him medically and monitor tolerance and response Offered him cardiac catheterization and patient declined. History of chest pain, patient was hospitalized [place] [address] elevation in the anterior lateral leads. Emergency cardiac catheterization was carried out with Dr. Gr showing mild to moderate coronary artery disease, had FFR to the LAD and the right coronary artery they were nonobstructive disease. Congestive heart failure, dilated cardiomyopathy, nonischemic in nature, Takotsubo cardiomyopathy. Last evaluation in 2018 with ejection fraction 35%. Not taking any medication. Cannot tolerate beta-blockers due to sinus bradycardia. We will start ARB. Hypertension, controlled at this time. Continue to monitor History of marijuana use. Advised to avoid illicit drugs Tobaccoism, educated on smoking cessation. Clinical Quality Measures AMI/AHF: ASA po Prior to arrival: No Smoking Cessation Counseling: Counseling-Symptomatic: 3-10 Minutes MAAME TAPIA MD Mar 19, 2022 10:01
[2022-03-19] MEDS ORDERED: ASPIRIN E.C. 81 MG (ECOTRIN) TAB PO SCH (10:15)
[2022-03-19] MEDS ORDERED: CLOPIDOGREL 300 MG (PLAVIX) TABLET PO ONE ×2 (10:15→17:19)
[2022-03-19] MEDS: RT-ALBUTEROL SULF 2.5 MG/3 ML PRE-MIX VIAL INH SCH ×2 (10:15→19:40)
[2022-03-19] MEDS ORDERED: LOSARTAN 25 MG (COZAAR) TAB PO SCH (10:15)
[2022-03-19] MEDS: PANTOPRAZOLE 40 MG (PROTONIX) TAB PO SCH (10:55)
[2022-03-19] MEDS: ENOXAPARIN 80 MG/0.8 ML (LOVENOX) SYR SC SCH ×2 (10:55→20:41)
--- NOTE | 2022-03-19 13:26 | History & Physical ---
RESTREPOLUBNA MARINAAELA 03/19/22 1326: History of Present Illness History of Present Illness Reason for visit/HPI Mr. Chong is a 66 year old male with a PMHx of CAD, Takotsubo cardiomyopathy, COPD, HLD, HTN, BPH, and GERD who presented to the [facility] ED on 03/18 with substernal chest pain radiating to his left jaw and ear. Patient is admitted to ICU for management and close monitoring per Cardiology with Hospitalist services for acute coronary syndrome vs. NSTEMI. Patient is resting in bed this morning. Patient reports mild-moderate substernal chest pain that feels like pressure that has been well managed with morphine. Patient also reports intermittent SOA. Remaining ROS is negative. Patient reports a history of having several heart attacks in the past that "go away on their own." Patient was seen by Dr. Hearn this morning and declined cardiac catheterization due to concerns of cost. Patient has been counseled regarding insurance and financial institution treasurer services but still declines. Date of Admission Mar 18, 2022 at 21:06 Date Seen by a Provider: Mar 19, 2022 Time Seen by a Provider: 08:35 I consulted on this patient on 03/19/22 13:17 Attending Physician No,Local Physician Admitting Physician Admitting Physician: Magalys Still MD Attending Physician: Magalys Still MD Consult Allergies and Home Medications Allergies Coded Allergies: No Known Drug Allergies (Unverified , 11/01/17) Patient Home Medication List Home Medication List Reviewed: Yes Aspirin (Aspirin EC) 81 Mg Tablet.dr, 81 MG PO DAILY, (Reported) Entered as Reported by: CASIMIRO DARLING on 07/28/17 0953 Clopidogrel Bisulfate (Clopidogrel) 75 Mg Tablet, 75 MG PO HS, (Reported) Entered as Reported by: DEMARCUS GALLARDO on 06/01/16 1158 Diazepam (Diazepam) 5 Mg Tablet, 5 MG PO BID PRN for ANXIETY, (Reported) Entered as Reported by: VIOLET GARCÍA on 10/23/17 0837 Losartan Potassium (Losartan Potassium) 50 Mg Tablet, 50 MG PO DAILY, (Reported) Entered as Reported by: KEERTHI ASCENCIO on 02/08/15 1113 Meloxicam (Meloxicam) 15 Mg Tablet, 15 MG PO DAILY, (Reported) Entered as Reported by: VIOLET GARCÍA on 10/23/17 0850 Nabumetone (Nabumetone) 750 Mg Tablet, 750 MG PO BID PRN for ARTHRITIS PAIN, (Reported) Entered as Reported by: DEMARCUS GALLARDO on 06/01/16 1158 Pravastatin Sodium (Pravastatin Sodium) 40 Mg Tablet, 40 MG PO HS, (Reported) Entered as Reported by: VIOLET GARCÍA on 10/23/17 0850 Ranitidine HCl (Ranitidine HCl) 300 Mg Tablet, 300 MG PO DAILY PRN for HEARTBURN, (Reported) Entered as Reported by: DEMARCUS GALLARDO on 06/01/16 1158 Past Pznzoen-Lhjuyv-Uvfjjq Hx Patient Social History Tobacco Use?: Yes Tobacco type used: Cigarettes Smoking Status: Current Everyday Smoker (1/2 pack per day) Use of E-Cig and/or Vaping dev: No Substance use?: Yes Substance type: Marijuana (smokes, last use one week ago) Alcohol Use?: Yes Alcohol type: Beer Alcohol Frequency: Once in a while Pt feels they are or have been: No Immunizations Up To Date Date of Influenza Vaccine: Nov 19, 2015 First/Initial COVID19 Vaccinat: na Tetanus Booster (TDap): Unknown Hepatitis A: No Hepatitis B: No PED Vaccines UTD: No Seasonal Allergies Seasonal Allergies: Yes Current Status Advance Directives: No Communicates: Verbally Primary Language: Canadian Preferred Spoken Language: Canadian Is interpretation needed?: No Sensory deficits: Vision impairment Implanted or Applied Medical D: None Past Medical History Surgeries: Cardiac, Eye Surgery, Orthopedic COPD Currently Using CPAP: No Currently Using BIPAP: No Heart Attack, High Cholesterol, Hypertension Concussion, Traumatic Brain Injury Sexually Transmitted Disease: No HIV/AIDS: No Benign Prostatic Hyperpl, Prostate Problems Gastroesophageal Reflux Degenerate Disk Disease, Arthritis, Chronic Back Pain, Fractures Loss of Vision: Left Hearing Impairment: Denies Anxiety, Depression Blood Disorders: No Adverse Reaction/Blood Tranf: No Family Medical History Asthma 19 FATHER CVA Review of Systems Constitutional: weakness EENTM: no symptoms reported Respiratory: short of breath (intermittent) Cardiovascular: chest pain (substernal) Gastrointestinal: no symptoms reported; No abdominal pain, No constipation, No diarrhea, No nausea, No vomiting Genitourinary: no symptoms reported Musculoskeletal: no symptoms reported Skin: no symptoms reported Psychiatric/Neurological: No Symptoms Reported (generalized); Denies Headache Physical Exam Vital Signs Vital Signs - First Documented 03/18/22 03/18/22 03/18/22 19:05 19:23 23:28 Temp 35.8 Pulse 65 Resp 16 B/P (MAP) 109/74 (86) Pulse Ox 97 O2 Delivery Room Air O2 Flow Rate 2.00 FiO2 32 Capillary Refill : Less Than 3 Seconds Height, Weight, BMI Height: 5'8.00" Weight: 134lbs. 0.0oz. 60.690034zk; 20.54 BMI Method:Estimated General Appearance: No Apparent Distress, WD/WN HEENT: Other (L eye has been surgically removed. Eye patch in place) Respiratory: Lungs Clear, Normal Breath Sounds, No Accessory Muscle Use, No Respiratory Distress Cardiovascular: No Edema, Other (sinus bradycardia, HR 45) Gastrointestinal: Normal Bowel Sounds, Non Tender, Soft Neurologic/Psychiatric: Alert, Oriented x3, Depressed Affect Skin: Normal Color, Warm/Dry Comments NAME: MIGUELANGEL CHONG [facility] REC#: [id number] PT STATUS: REG ER : 1955 PHYSICIAN: EV STACY MD ADMIT DATE: 03/18/22/ER Signed Date of Exam:03/18/22 CHEST 1 VIEW, AP/PA ONLY INDICATION: Chest pain COMPARISON: 07/28/2017 TECHNIQUE: Single radiograph of the chest dated 03/18/2022. FINDINGS: The cardiac silhouette is within normal limits in size. Minimal central pulmonary vascular congestion. The lungs are clear of focal pulmonary opacity. No pleural effusion. No pneumothorax. No acute osseous abnormality. IMPRESSION: Minimal central pulmonary vascular congestion without significant interstitial edema or pleural effusion. Dictated by: Dictated on workstation # [id number] Dict: 03/18/221930 Trans: 03/18/222036 PERLA [id number] Interpreted by: PAOLO MENDEZ MD Electronically signed by: PAOLO MENDEZ MD 03/18/222036 Assessment/Plan Assessment and Plan 1. Acute coronary syndrome vs. 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 Patient stated if his condition declines he would agree to cardiac catheterization -Anti-platelet therapy with Plavix 75mg PO daily, ASA 81mg PO daily -Anti-coagulation with Lovenox 80mg Q12H SC -Chest pain management - morphine 4mg Q3H PRN IV -Losartan 25mg PO daily - cardio-protection, BP management -Trending troponin -Telemetry with close monitoring -High dose statin therapy, LDL 87; Lipitor 40mg PO daily 2. GERD -Pantoprazole 40mg PO daily 3. HTN -Losartan 25mg PO daily -Monitor BP 4. Tobacco use -Nicotine patch 5. Benzodiazepine use for anxiety/depression -Monitor for symptoms of withdrawal Admission Diagnosis Admission Status: Inpatient Order (span 2 midnights) Clinical Quality Measures AMI/AHF: ASA po Prior to arrival: No Smoking Cessation Counseling: Counseling-Symptomatic: 3-10 Minutes MAGALYS STILL MD 03/19/22 1400: Allergies and Home Medications Allergies Coded Allergies: No Known Drug Allergies (Unverified , 11/01/17) Patient Home Medication List Home Medication List Reviewed: Yes Aspirin (Aspirin EC) 81 Mg Tablet.dr, 81 MG PO DAILY, (Reported) Entered as Reported by: CASIMIRO DARLING on 07/28/17 0953 Clopidogrel Bisulfate (Clopidogrel) 75 Mg Tablet, 75 MG PO HS, (Reported) Entered as Reported by: DEMARCUS GALLARDO on 06/01/16 1158 Diazepam (Diazepam) 5 Mg Tablet, 5 MG PO BID PRN for ANXIETY, (Reported) Entered as Reported by: VIOLET GARCÍA on 10/23/17 0837 Losartan Potassium (Losartan Potassium) 50 Mg Tablet, 50 MG PO DAILY, (Reported) Entered as Reported by: KEERTHI ASCENCIO on 02/08/15 1113 Meloxicam (Meloxicam) 15 Mg Tablet, 15 MG PO DAILY, (Reported) Entered as Reported by: VIOLET GARCÍA on 10/23/17 0850 Nabumetone (Nabumetone) 750 Mg Tablet, 750 MG PO BID PRN for ARTHRITIS PAIN, (Reported) Entered as Reported by: DEMARCUS GALLARDO on 06/01/16 1158 Pravastatin Sodium (Pravastatin Sodium) 40 Mg Tablet, 40 MG PO HS, (Reported) Entered as Reported by: VIOLET GARCÍA on 10/23/17 0850 Ranitidine HCl (Ranitidine HCl) 300 Mg Tablet, 300 MG PO DAILY PRN for HEARTBURN, (Reported) Entered as Reported by: DEMARCUS GALLARDO on 06/01/16 1808 Past Lgjompt-Gupcge-Nhkgjf Hx Family Medical History Asthma 19 FATHER CVA Assessment/Plan Assessment and Plan Patient presents with NSTEMI and increasing troponin. Cardiac cath was recommended by cardiology but patient declines stating he believes it will go away on it's own. He states he has had multiple heart attacks and that is the management he's chosen then as well. He does agree that if it gets worse or he develops EKG changes he would be agreeable to cath then. He would also like to be a full code should he suffer a heart attack severe enough to make his heart stop. He reports his pain is improved today and his only request is a coffee. He just had his echo done and results are pending. Will keep him in the hospital tonight for continued monitoring. Supervisory-Addendum Brief Verification & Attestation Participated in pt care: history, MDM, physical Personally performed: exam, history, MDM, supervision of care Care discussed with: Medical Student Procedures: n/a Results interpretation: Verified all documentation Verification and Attestation of Medical Student E/M Service A medical student performed and documented this service in my presence. I reviewed and verified all information documented by the medical student and made modifications to such information, when appropriate. I personally performed the physical exam and medical decision making. Magalys Still, Mar 19, 2022,13:57 ANDRAE RESTREPO Mar 19, 2022 13:26 MAGALYS STILL MD Mar 19, 2022 14:00
[2022-03-19] MEDS ORDERED: NITROGLYCERIN 2% OINT 1 GM UNIT DOSE PACKET ONE (15:05)
[2022-03-19] MEDS ORDERED: VERAPAMIL 5 MG/2 ML (CALAN) VIAL IV ONE (16:03)
[2022-03-19] MEDS ORDERED: MIDAZOLAM 5 MG/5 ML (VERSED) VIAL ONE (16:03)
[2022-03-19] MEDS ORDERED: fentaNYL INJ 100 MCG/2 ML AMP ONE (16:03)
[2022-03-19] MEDS ORDERED: NS IV 1000 ML 0 ML ONE (16:04)
[2022-03-19] MEDS ORDERED: HEParin 1000 UNIT/ML (10ML VIAL) FOR BOLUS ONE (16:04)
[2022-03-19] MEDS ORDERED: LIDOCAINE 1% INJ 30 ML (XYLOCAINE) VIAL ONE (16:04)
[2022-03-19] MEDS ORDERED: HEParin (CATH LAB) 2,000 ML IV ONE (16:04)
[2022-03-19] MEDS ORDERED: NITRO DRIP 25000 MCG/D5W 250 ML IV ONE (16:04)
--- NOTE | 2022-03-19 16:38 | Cardiac Procedure Note-CS/ASA ---
Pre-Procedure Note Pre-Op Procedure Note Date of Available H&P: Mar 19, 2022 Date H&P Reviewed: Mar 19, 2022 Time H&P Reviewed: 16:00 History & Physical: H&P Reviewed, Patient Examed, No changes noted Pre-Operative Diagnosis: CP Conscious Sedation Pre-Proced Time 16:00 ASA Score 3 For ASA 3 and 4: Consider anesthesia and medical clearance. Also, for patients with a history of failed moderate sedation consider anesthesia. Airway Lungs Heart ASA score ASA 1: a normal healthy patient ASA 2: a patient with a mild systemic disease (mid diabetes, controlled hypertension, obesity ASA 3: a patient with a severe systemic disease that limits activity (angina, COPD, prior Myocardial infarction) ASA 4: a patient with an incapacitating disease that is a constant threat to life (CHF, renal failure) ASA 5: a moribund patient not expected to survive 24 hrs. (ruptured aneurysm) ASA 6: a declared brain- patient whose organs are being harvested. For emergent operations, add the letter E after the classification Mallampati Classification Grade 3 Sedation Plan Analgesia, Amnesia, Plan communicated to team members, Discussed options with patient/fam, Discussed risks with patient/fam The patient is an appropriate candidate to undergo the planned procedure, sedation, and anesthesia. The patient immediately re-assessed prior to indication. MAAME TAPIA MD Mar 19, 2022 16:38
[2022-03-19] MEDS ORDERED: meTOprolol 5 MG/5 ML (LOPRESSOR) VIAL ONE (16:47)
[2022-03-19] MEDS: NS IV 1000 ML 1,000 ML IV SCH ×2 (17:11→20:41)
[2022-03-19] MEDS ORDERED: ASPIRIN 325 MG (5 GR) TABLET ONE (17:18)
--- NOTE | 2022-03-19 17:25 | Cardiac Cath Report ---
Cardiac Cath Report Physician (s)/Employment Services Director (s) Physician MAAME TAPIA MD Pre-Procedure Diagnosis Pre-Procedure Diagnosis: CP Post-Procedure Note Procedure Start Date: Mar 19, 2022 Name of Procedure: Left heart catheterization Aortic arch angiogram IFR to the right coronary artery Stenting to the right coronary artery Findings/Procedure Note PROCEDURE NOTE: 66-year-old gentleman admitted with chest pain, had elevated troponin level, advised on cardiac catheterization, patient insisted on not having it. Continue to have chest pain, this evening he agreed on having the cardiac catheterization done. After explaining the procedure to the patient, all pros and cons were explained, all questions were answered. The patient signed the consent and then he was placed in the cardiac catheterization laboratory. Groin was prepped in SL fashion local anesthesia was used. Sheath placed in the right radial artery, Ulmer catheter was advanced to the left ventricular cavity, pressure was measured, pullback LV to aorta was done, engage the right and left coronary system angiogram was done. Patient had a lesion in the mid right coronary artery, I proceeded with Joana right guide and did IFR through the lesion which was 0.80. I proceeded with deployment of darwin point stent 3 x 23 postdilated to 3.5 mm using noncompliant balloon. Full resolution of the stenosis was noted. 0 residual stenosis with excellent flow. IFR evaluation post stent deployment did not show significant improvement although there was no angiographic lesions in the right coronary artery. Post intervention IFR was 0.81. The guide was pulled to the aortic arch, I was concerned about aortic arch dissection with his significant chest pain and severe hypertension angiogram was done. No dissection was noted. At the end of the procedure the sheath was removed. Vascular band was used FINDINGS: Hemodynamics LV 129/15, end-diastolic pressure of 15 Aorta 153/61 mean of 95 ANATOMY: Left Main is free of obstructive disease Left Anterior Descending has ostial 50% stenosis, mid LAD has 50% stenosis. Left Circumflex is moderate in size with no obstructive disease Right Coronary Artery is large dominant artery with 70% stenosis in the mid right coronary artery successful stenting to the mid right coronary artery with darwin point stent 3 x 23 expanded to 3.5 mm with 0% residual stenosis LV Gram was not done, pressure was measured Aorta evaluation done with aortic arch angiogram showing normal aortic arch some calcification in the arch with hypertensive changes. No dissection or aneurysm, normal origin of the brachiocephalic artery, left carotid and left subclavian arteries. PERCUTANEOUS INTERVENTION: Pre stenosis 70% Post Stenosis 0% Pre NARCISA flow 2 Post NARCISA flow 3 Dominance right coronary artery CONCLUSION: 1. 70% stenosis in the mid right coronary artery successful stenting using darwin point stent 3 x 23 expanded to 3.5 mm with excellent results 2. 50% ostial LAD and mid LAD involving the diagonal artery treated conservatively 3. Normal left ventricular end-diastolic pressure 4. Normal aortic arch and great vessels of the neck DISCUSSION AND RECOMMENDATION: Patient was started on aspirin and Plavix, losartan. Nitroglycerin. If he continues to have chest pain will consider intervention on the LAD. Anesthesia Type: Conscious Sedation Estimated blood loss (mL): 25 ml Contrast Amount: 54 ml Total Radiation Dose: 559 mGy Post-Procedure Diagnosis Post-operative diagnosis: Chest pain Non-ST elevation myocardial infarction Hypertension Hyperlipidemia MAAME TAPIA MD Mar 19, 2022 17:25
[2022-03-19] MEDS: NITROGLYCERIN 2% OINT 1 GM UNIT DOSE PACKET TOP SCH (17:52)
[2022-03-19] MEDS ORDERED: ISOSORBIDE MONONITRATE 30 MG (IMDUR) TAB PO ONE (19:40)
[2022-03-19] MEDS: ISOSORBIDE MONONITRATE 30 MG (IMDUR) TAB PO SCH (19:41)
[2022-03-19] MEDS ORDERED: LOSARTAN 50 MG (COZAAR) TAB ONE (20:36)
[2022-03-19] MEDS: LOSARTAN 50 MG (COZAAR) TAB PO SCH (20:41)
[2022-03-19] MEDS ORDERED: PANTOPRAZOLE 40 MG (PROTONIX) TAB PO SCH (21:00)
[2022-03-20] MEDS: NITROGLYCERIN 2% OINT 1 GM UNIT DOSE PACKET TOP SCH ×2 (00:36→06:03)
[2022-03-20] MEDS: NS IV 1000 ML 1,000 ML IV SCH (04:01)
[2022-03-20 05:01] LABS: BASOPHILS % (AUTO) 0 % (0-10); EOSINOPHILS # (AUTO) 0.1 10^3/uL (0.0-0.3); EOSINOPHILS % (AUTO) 1 % (0-10); HEMATOCRIT 39 % (40-54); HEMOGLOBIN 13.4 g/dL (13.3-17.7); LYMPHOCYTES # (AUTO) 2.2 10^3/uL (1.0-4.0); LYMPHOCYTES % (AUTO) 29 % (12-44); MEAN CORPUSCULAR HEMOGLOBIN 31 pg (25-34); MEAN CORPUSCULAR HGB CONC 34 g/dL (32-36); MEAN CORPUSCULAR VOLUME 90 fL (80-99); MEAN PLATELET VOLUME 9.8 fL (9.0-12.2); MONOCYTES # (AUTO) 0.5 10^3/uL (0.0-1.0); MONOCYTES % (AUTO) 7 % (0-12); NEUTROPHILS # (AUTO) 4.7 10^3/uL (1.8-7.8); NEUTROPHILS % (AUTO) 63 % (42-75); PLATELET COUNT 153 10^3/uL (130-400); WHITE BLOOD COUNT 7.5 10^3/uL (4.3-11.0)
[2022-03-20 05:18] LABS: ALBUMIN 3.3 GM/DL (3.2-4.5); POTASSIUM 3.5 MMOL/L (3.6-5.0)
[2022-03-20 05:19] LABS: CALCIUM 8.3 MG/DL (8.5-10.1)
[2022-03-20 05:21] LABS: TOTAL PROTEIN 5.7 GM/DL (6.4-8.2)
[2022-03-20 05:23] LABS: BILIRUBIN,TOTAL 1.7 MG/DL (0.1-1.0)
[2022-03-20 05:24] LABS: PHOSPHORUS 2.5 MG/DL (2.3-4.7)
[2022-03-20 05:25] LABS: CREATININE SERUM 0.76 MG/DL (0.60-1.30)
[2022-03-20 05:27] LABS: MAGNESIUM 1.7 MG/DL (1.6-2.4)
[2022-03-20] MEDS: MAGNESIUM 1 GM/100 ML IVPB 100 ML IV SCH ×3 (05:33→06:58)
[2022-03-20] MEDS: POTASSIUM CL 10MEQ/50ML IVPB 50 ML IV SCH ×3 (05:33→06:58)
[2022-03-20] MEDS: KCL 20 MEQ TAB (K-DUR) PO SCH (05:34)
[2022-03-20] MEDS ORDERED: MAGNESIUM 1 GM/100 ML IVPB 200 ML IV ONE (05:40)
[2022-03-20] MEDS ORDERED: POTASSIUM CL 10MEQ/50ML IVPB 100 ML IV ONE (05:40)
[2022-03-20] MEDS ORDERED: PANTOPRAZOLE 40 MG (PROTONIX) TAB PO SCH (07:00)
[2022-03-20] MEDS: RT-ALBUTEROL SULF 2.5 MG/3 ML PRE-MIX VIAL INH SCH (07:37)
[2022-03-20] MEDS: LOSARTAN 50 MG (COZAAR) TAB PO SCH (08:24)
[2022-03-20] MEDS: PANTOPRAZOLE 40 MG (PROTONIX) TAB PO SCH (08:25)
[2022-03-20] MEDS: ISOSORBIDE MONONITRATE 30 MG (IMDUR) TAB PO SCH (08:25)
[2022-03-20] MEDS: NICOTINE 21 MG (NICODERM) PATCH TD SCH (08:25)
[2022-03-20] MEDS: ENOXAPARIN 80 MG/0.8 ML (LOVENOX) SYR SC SCH (08:25)
--- NOTE | 2022-03-20 08:38 | Tele-ICU Progress Note ---
Subjective Date Seen by a Provider: Mar 20, 2022 Time Seen by a Provider: 08:36 Subjective/Events-last exam 66 yo M with STEMI, went to [facility] and had stent placed RCA Now on DPT, Lovenox 80 bid No CP, SOB Sepsis Event Evaluation Height, Weight, BMI Height: 5'8.00" Weight: 134lbs. 0.0oz. 60.406891wn; 20.64 BMI Method:Estimated Exam Exam Patient acknowledged, consented, and participated in this virtual visit which was conducted using real time audio/video Vital Signs Date Time Temp Pulse Resp B/P (MAP) Pulse Ox O2 Delivery O2 Flow Rate FiO2 03/20/22 07:37 95 Room Air 03/20/22 07:00 81 03/20/22 06:00 63 14 126/60 (82) 94 Room Air 03/20/22 05:00 55 18 133/65 (87) 95 Room Air 03/20/22 04:00 95 Room Air 03/20/22 04:00 36.7 57 17 121/60 (80) 95 Room Air 03/20/22 03:00 54 15 108/60 (76) 96 Room Air 03/20/22 02:00 52 12 111/54 (73) 95 Room Air 03/20/22 01:00 56 18 108/59 (75) 95 Room Air 03/20/22 01:00 56 03/20/22 00:00 57 12 92/54 (67) 96 Room Air 03/19/22 23:15 36.5 Room Air 03/19/22 23:00 64 18 108/60 (76) 95 Room Air 03/19/22 23:00 98 Room Air 03/19/22 22:00 71 118/54 (75) 96 Room Air 03/19/22 21:00 66 12 103/58 (73) 93 Room Air 03/19/22 20:15 70 16 140/62 (88) 95 Room Air 03/19/22 20:00 76 109/99 (102) 97 Room Air 03/19/22 19:46 37.3 03/19/22 19:43 98 Room Air 03/19/22 19:30 97 Room Air 03/19/22 19:00 37.6 57 18 152/68 (96) 97 Room Air 03/19/22 19:00 54 03/19/22 18:30 50 8 135/80 (98) 96 Nasal Cannula 2.00 03/19/22 18:15 51 10 142/68 (92) 96 Nasal Cannula 2.00 03/19/22 18:00 53 8 147/74 (98) 96 Nasal Cannula 2.00 03/19/22 17:45 53 6 155/74 (101) 96 Nasal Cannula 2.00 03/19/22 17:30 58 160/77 (104) Nasal Cannula 2.00 03/19/22 16:07 36.7 03/19/22 16:00 58 18 165/89 (114) 99 Nasal Cannula 2.00 03/19/22 15:44 99 Nasal Cannula 2.00 03/19/22 15:00 60 20 133/67 (89) 100 Nasal Cannula 2.00 03/19/22 14:00 59 14 142/73 (96) 99 Nasal Cannula 2.00 03/19/22 13:00 54 15 154/68 (96) 100 Nasal Cannula 2.00 03/19/22 12:35 54 03/19/22 12:15 37.0 03/19/22 12:00 55 12 130/61 (84) 97 Nasal Cannula 2.00 03/19/22 12:00 97 Nasal Cannula 2.00 03/19/22 11:00 56 8 121/50 (73) 98 Nasal Cannula 2.00 03/19/22 10:15 98 Nasal Cannula 2.00 03/19/22 10:00 46 8 146/68 (94) 99 Nasal Cannula 2.00 03/19/22 09:00 46 30 145/67 (93) 97 Nasal Cannula 2.00 I & O 03/20/22 07:00 Intake Total 985 ml Output Total 2375 ml Balance -1390 ml Height & Weight Height: 5'8.00" Weight: 134lbs. 0.0oz. 60.994921mh; 20.64 BMI Method:Estimated General Appearance: No Apparent Distress, WD/WN HEENT: Other (L eye has been surgically removed. Eye patch in place) Neck: Normal Inspection Respiratory: Lungs Clear, Normal Breath Sounds, No Accessory Muscle Use, No Respiratory Distress Cardiovascular: No Edema, Other (sinus bradycardia, HR 45, now better) Capillary Refill: Less Than 3 Seconds Extremity: Normal Capillary Refill, Normal Inspection, Normal Range of Motion, Non Tender, No Calf Tenderness Neurologic/Psychiatric: Alert, Oriented x3, Depressed Affect Skin: Normal Color, Warm/Dry Lymphatic: No Adenopathy Results Lab Laboratory Tests 03/18/22 19:13 03/19/22 06:00 03/20/22 04:15 Assessment/Plan Assessment/Plan ACS, s/p stent RCA, will continue on DPT bradycardia is better no further CP, SOB Critical Care: Critically Ill Patient Time spent with patient (mins): 20 RUSSELL HANDLEY MD Mar 20, 2022 08:38
[2022-03-20] MEDS ORDERED: CLOPIDOGREL 75 MG (PLAVIX) TABLET PO SCH ×2 (09:00)
[2022-03-20] MEDS ORDERED: PATCH REMOVAL TP SCH (09:00)
[2022-03-20] MEDS ORDERED: ASPIRIN E.C. 81 MG (ECOTRIN) TAB PO SCH (09:00)
[2022-03-20] MEDS ORDERED: ACETAMINOPHEN 500 MG TAB (TYLENOL) PO PRN (10:30)
--- NOTE | 2022-03-20 10:42 | Cardiology Progress Note ---
Subjective Date Seen by Provider: Mar 20, 2022 Time Seen by Provider: 10:40 Subjective/Events-last exam Patient is laying down in bed, feeling better. No further episodes of chest pain Review of Systems General: No Chills, No Night Sweats, No Fatigue, No Malaise, No Appetite, No Other HEENT: No Head Aches, No Visual Changes, No Eye Pain, No Ear Pain, No Dysphasia, No Sinus Congestion, No Post Nasal Drip, No Sore Throat, No Other Pulmonary: No Dyspnea, No Cough, No Pleuritic Chest Pain, No Other Cardiovascular: No: Chest Pain, Palpitations, Orthopnea, Paroxysmal Noc. Dyspnea, Edema, Lt Headedness, Other Objective-Cardiology Exam Last Set of Vital Signs Vital Signs 03/18/22 03/19/22 03/20/22 23:28 18:30 10:00 Pulse 85 Resp 28 B/P (MAP) 161/89 (113) Pulse Ox 99 O2 Delivery Room Air O2 Flow Rate 2.00 FiO2 32 I&O Intake and Output 03/20/22 00:00 Intake Total 890 ml Output Total 2825 ml Balance -1935 ml Intake Oral 690 ml IV Total 200 ml Output Urine Total 2825 ml # Bowel Movements 1 General: Alert, Oriented X3, Cooperative HEENT: Atraumatic, PERRLA Neck: Supple, No JVD, No Thyromegaly Lungs: Clear to Auscultation, Normal Air Movement Heart: Regular Rate, Normal S1, Normal S2, No Murmurs Abdomen: Normal Bowel Sounds, Soft, No Tenderness, No Hepatosplenomegaly, No Masses Extremities: No Clubbing, No Cyanosis, No Edema, Normal Pulses, No Tenderness/Swelling Skin: No Rashes, No Breakdown, No Significant Lesion Neuro: Normal Gait, Normal Speech, Strength at 5/5 X4 Ext, Normal Tone, Sensation Intact Psych/Mental Status: Mental Status NL, Mood NL Results Lab Laboratory Tests 03/20/22 04:15 A/P-Cardiology Admission Diagnosis Chest pain Non-ST elevation myocardial infarction Dilated cardiomyopathy nonischemic cardiomyopathy Tobaccoism Assessment/Plan Non-ST elevation myocardial infarction, mild elevation in troponin level. Reporting improvement. No further episodes of chest pain Initially was refusing cardiac catheterization and then agreed on the procedure Coronary artery disease Cardiac catheterization [place] [address] Gr, FFR to the LAD and to the right coronary artery and it was noted to be nonobstructive disease at that time. Cardiac catheterization was done on March 19, 2022, severe stenosis in the mid right coronary artery successful stenting using darwin point stent 3 x 23 expanded to 3.5 mm with excellent results. Moderate stenosis at the ostial LAD and mid LAD involving diagonal artery will be monitored and will consider stress test at a later point Congestive heart failure, dilated cardiomyopathy, nonischemic in nature, Takotsubo cardiomyopathy. Last evaluation in 2018 with ejection fraction 35%. Not taking any medication. Cannot tolerate beta-blockers due to sinus bradycardia. We will start ARB. Hypertension, controlled at this time. Continue to monitor History of marijuana use. Advised to avoid illicit drugs Tobaccoism, educated on smoking cessation. Okay for discharge and follow-up as an outpatient MAAME TAPIA MD Mar 20, 2022 10:42
[2022-03-20] MEDS ORDERED: ISOS30TA82 PO (10:44)
[2022-03-20] MEDS ORDERED: LOSA100T57 PO (10:44)
[2022-03-20] MEDS ORDERED: PANT40TA52 PO (10:44)
--- NOTE | 2022-03-20 10:44 | Discharge Inst-Post CATH ---
Discharge Inst-CATH/EP Problems Reviewed?: Yes Post Cardiac Cath/EP D/C Inst Follow Up/Plan Appointment with Dr. Hearn's office in 2 weeks <b>CARDIAC CATH/EP PROCEDURE DISCHARGE INSTRUCTIONS</b> ACTIVITY * Go Home directly and rest. * Limit activity of the leg (or wrist if it was used) for 7 days including aerobics, swimming, jogging, bicycling, etc. * Restrict stair-climbing for 7 days if possible, if not, climb up with your non-cath leg, then bring together on the same step. * Avoid lifting, pushing, pulling or excessive movement of the affected e xtremity for 7 days. * Customary sexual activity may be resumed after 2 days-use caution not to use a position that strains or causes pain to the affected extremity. * No driving for 24 hours. * NO SMOKING. * Avoid straining for bowel movements for 7 days. * Gentle walking on level ground is allowed. * Returning to work will depend on the type of procedure and the results. Your doctor will discuss this with you. CALL YOUR DOCTOR FOR ANY OF THE FOLLOWING: *If bleeding from the puncture site occurs- Apply gentle pressure to site with clean cloth and call your doctor or EMS. * If a knot or lump forms under the skin, increases in size, or causes pain. * If bruising appears to be worsening or moving further down your leg instead of disappearing. * Temperature above 101 F. CARE OF YOUR GROIN INCISION; * Bruising or purple discoloration of the skin near the puncture site is common. * You may shower only, no bathtub bathing for 5 days. Be careful to avoid slipping as your leg may feel stiff. * If a closure device was used on your femoral artery, please see the attached guide regarding care of the device and your leg. * Leave dressing on FOR 24 hours. CARE OF YOUR WRIST INCISION; * Bruising or purple discoloration of the skin near the puncture site is common. * You may shower. * DO NOT submerge wrist. * Leave dressing on FOR 24 hours. MAAME HEARN MD Mar 20, 2022 10:44
[2022-03-20] MEDS ORDERED: ASPI-1238 PO (10:45)
[2022-03-20] MEDS ORDERED: CLOP75TA28 PO (10:45)
--- NOTE | 2022-03-20 13:11 | Discharge Summary ---
Discharge Summary Hospital Course Was the Problem List Reviewed?: Yes Hospital Course Date of Admission: Mar 19, 2022 at 16:17 Admission Diagnosis : Acute coronary syndrome, NSTEMI Family Physician/Provider: Katja,Local Physician Date of Discharge: 03/20/22 Discharge Diagnosis: [ Acute coronary syndrome, NSTEMI] Hospital Course: [Mr. Brown is a 66 year old male with a PMHx of CAD, Takotsubo cardiomyopathy, COPD, HLD, HTN, BPH, and GERD who presented to the [facility] ED on 03/18 with substernal chest pain radiating to his left jaw and ear. Patient was admitted to ICU for management and close monitoring per Cardiology with Hospitalist services for acute coronary syndrome vs. NSTEMI. Patient initially declined cardiac catheterization on 03/19, but with worsening symptoms throughout the day consented to cardiac catheterization. Patient was taken to the laboratory chief on 03/19 with successful stent placement in the right coronary artery by Dr. Hearn. Patient tolerated the procedure well and continues to remain stable. Patient is stable for discharge on 03/20/22. Discharge instructions have been provided per Dr. Hearn. This is a brief summary of the patient's hospital course. Full disclosure of the hospital course events can be found in the patient's EMR.] Labs and Pending Lab Test: Laboratory Tests 03/20/22 04:15: White Blood Count 7.5, Red Blood Count 4.31, Hemoglobin 13.4, Hematocrit 39L, Mean Corpuscular Volume 90, Mean Corpuscular Hemoglobin 31, Mean Corpuscular Hemoglobin Concent 34, Red Cell Distribution Width 12.6, Platelet Count 153, Mean Platelet Volume 9.8, Immature Granulocyte % (Auto) 0, Neutrophils (%) (Auto) 63, Lymphocytes (%) (Auto) 29, Monocytes (%) (Auto) 7, Eosinophils (%) (Auto) 1, Basophils (%) (Auto) 0, Neutrophils # (Auto) 4.7, Lymphocytes # (Auto) 2.2, Monocytes # (Auto) 0.5, Eosinophils # (Auto) 0.1, Basophils # (Auto) 0.0, Immature Granulocyte # (Auto) 0.0, Sodium Level 140, Potassium Level 3.5L, Chloride Level 111H, Carbon Dioxide Level 19L, Anion Gap 10, Blood Urea Nitrogen 5L, Creatinine 0.76, Estimat Glomerular Filtration Rate 100, BUN/Creatinine Ratio 7, Glucose Level 87, Calcium Level 8.3L, Corrected Calcium 8.9, Phosphorus Level 2.5, Magnesium Level 1.7, Total Bilirubin 1.7H, Aspartate Amino Transf (AST/SGOT) 25, Alanine Aminotransferase (ALT/SGPT) 19, Alkaline Phosphatase 65, Troponin I 0.876*H, B-Type Natriuretic Peptide 249.4H, Total Protein 5.7L, Albumin 3.3 Microbiology 03/18/22 MRSA Screen - Final, Complete MRSA not isolated Home Meds Active Aspirin EC (Aspirin) 81 Mg Tablet.dr 81 Mg PO DAILY Clopidogrel (Clopidogrel Bisulfate) 75 Mg Tablet 75 Mg PO HS Losartan Potassium 100 Mg Tablet 100 Mg PO DAILY Pantoprazole Sodium 40 Mg Tablet.dr 40 Mg PO BIDAC Isosorbide Mononitrate ER (Isosorbide Mononitrate) 30 Mg Tab.er.24h 30 Mg PO DAILY Reported Meloxicam 15 Mg Tablet 15 Mg PO DAILY Pravastatin Sodium 40 Mg Tablet 40 Mg PO HS Diazepam 5 Mg Tablet 5 Mg PO BID PRN Ranitidine HCl 300 Mg Tablet 300 Mg PO DAILY PRN Nabumetone 750 Mg Tablet 750 Mg PO BID PRN Discharge Planning: <30 minutes discharge planning Discharge Instructions Discharge Diet: No Restrictions Discharge Physical Examination Vital Signs Vital Signs Date Time Temp Pulse Resp B/P (MAP) Pulse Ox O2 Delivery O2 Flow Rate FiO2 03/20/22 12:00 95 Room Air 03/20/22 12:00 36.9 03/20/22 11:00 79 10 132/69 (90) 03/19/22 18:30 2.00 03/18/22 23:28 32 General Appearance: No Apparent Distress, WD/WN Respiratory: Lungs Clear, Normal Breath Sounds, No Accessory Muscle Use, No Respiratory Distress Cardiovascular: Regular Rate, Rhythm, No Edema Gastrointestinal: Normal Bowel Sounds, Non Tender, Soft Extremity: No Pedal Edema Skin: Normal Color, Warm/Dry Neurologic/Psychiatric: Alert, Oriented x3, Normal Mood/Affect Allergies: Coded Allergies: No Known Drug Allergies (Unverified , 11/01/17) Discharge Summary Date of Admission Mar 19, 2022 at 16:17 Date of Discharge 03/20/2022 Discharge Date: Mar 20, 2022 Discharge Time: 12:00 Admission Diagnosis Acute coronary syndrome, NSTEMI Consults/Procedures Procedures Cardiac catheterization with stent placement in right coronary artery Discharge Diagnosis Acute coronary syndrome, NSTEMI Clinical Quality Measures AMI/AHF: ASA po Prior to arrival: No Smoking Cessation Counseling: Counseling-Symptomatic: 3-10 Minutes ANDRAE RESTREPO Mar 20, 2022 13:09
== END 2022-03-20 13:00 | disposition home or self-care (01) | DRG 247 ==
LOC: EDUNIT# 19:08 → ER 19:09 → ICU 21:06 → OBSVTOIN 03-19 16:17
PROVIDERS: ADMIT Family Medicine; ATTEND Family Medicine
PROC: 027034Z Dilation of Coronary Artery, One Artery with Drug-eluting Intraluminal Device, Percutaneous Approach (ICD-10-PCS; principal; 2022-03-19)
PROC: 4A023N7 Measurement of Cardiac Sampling and Pressure, Left Heart, Percutaneous Approach (ICD-10-PCS; 2022-03-19)
PROC: B3101ZZ Fluoroscopy of Thoracic Aorta using Low Osmolar Contrast (ICD-10-PCS; 2022-03-19)
PROC: 4A033BC Measurement of Arterial Pressure, Coronary, Percutaneous Approach (ICD-10-PCS; 2022-03-19)
PROC: B2111ZZ Fluoroscopy of Multiple Coronary Arteries using Low Osmolar Contrast (ICD-10-PCS; 2022-03-19)
DX: I21.4 Non-ST elevation (NSTEMI) myocardial infarction (principal); I42.0 Dilated cardiomyopathy; I42.8 Other cardiomyopathies; I25.10 Atherosclerotic heart disease of native coronary artery without angina pectoris; J44.9 Chronic obstructive pulmonary disease, unspecified; K21.9 Gastro-esophageal reflux disease without esophagitis; N40.0 Benign prostatic hyperplasia without lower urinary tract symptoms; I10 Essential (primary) hypertension; F17.210 Nicotine dependence, cigarettes, uncomplicated; I50.9 Heart failure, unspecified; I11.0 Hypertensive heart disease with heart failure; Z79.82 Long term (current) use of aspirin; Z79.899 Other long term (current) drug therapy; F12.90 Cannabis use, unspecified, uncomplicated; I25.2 Old myocardial infarction; E78.00 Pure hypercholesterolemia, unspecified; Z87.820 Personal history of traumatic brain injury; M19.90 Unspecified osteoarthritis, unspecified site; G89.29 Other chronic pain; M54.9 Dorsalgia, unspecified; F41.9 Anxiety disorder, unspecified; F32.A Depression, unspecified
CPT/HCPCS: 36221; 36415; 71045; 80053; 80061; 80306; 81000; 83735; 83874; 83880; 84100; 84484; 85025; 85610; 85730; 87081; 93005; 93041; 93306; 93458; 94640; 96361; 96372; 96374; 96375; 96376; G0378